=== PATIENT | female | born 1970 | race Caucasian/White ===

== ENCOUNTER 2016-11-13 21:30 | Emergency (ER) | payer MEDICARE, MEDICAID ==
[2016-11-13] MEDS ORDERED: METHYLPREDNISOLONE INJ 125 MG/2 ML SDV IM ONE (23:28)
--- NOTE | 2016-11-13 23:29 | ER Document Report ---
ED Allergic Reaction - General Chief Complaint: Allergic Reaction Stated Complaint: BUG BITE Time Seen by Provider: 11/13/16 23:06 Mode of Arrival: Ambulatory Information source: Patient TRAVEL OUTSIDE OF THE [place] IN LAST 30 DAYS: No - HPI Patient complains to provider of: Allergic reaction to bee sting Onset: This afternoon Onset/Duration: Gradual Severity: Mild Identified cause: Yes Skin rash / itching: "Hives" Trouble swallowing / speaking: Mild Notes: Patient is a 46-year-old female presenting to the emergency room complaining of insect sting to left upper extremity that has gotten worse with swelling and hives since the initial bee sting occurred, she reports a history of anaphylactic reaction in the past, has been taking Benadryl and has an EpiPen on hand which she has not used, today she developed redness and swelling near her left elbow, and the sensation of difficulty swallowing - Related Data Allergies/Adverse Reactions: No Known Allergies Allergy (Unverified 11/13/16 23:20) Past Medical History - General Information source: Patient - Social History Smoking Status: Current Every Day Smoker Frequency of alcohol use: None Drug Abuse: None Family History: Reviewed & Not Pertinent Patient has suicidal ideation: No Patient has homicidal ideation: No Renal/ Medical History: Denies: Hx Peritoneal Dialysis Past Surgical History: Reports: Hx Cholecystectomy, Hx Gynecologic Surgery - tubal ligation, Hx Orthopedic Surgery - spinal sx. Review of Systems - Review of Systems Constitutional: No symptoms reported EENT: Difficulty swallowing Cardiovascular: No symptoms reported Respiratory: No symptoms reported Gastrointestinal: No symptoms reported Genitourinary: No symptoms reported Female Genitourinary: No symptoms reported Musculoskeletal: No symptoms reported Skin: See HPI Hematologic/Lymphatic: No symptoms reported Neurological/Psychological: No symptoms reported -: Yes All other systems reviewed and negative Physical Exam - Vital signs Vitals: Temp Pulse Resp BP Pulse Ox 97.4 F 85 16 143/88 H 98 11/13/16 21:35 11/13/16 21:35 11/13/16 21:35 11/13/16 21:35 11/13/16 21:35 - Notes Notes: - General General appearance: Appears well, Alert In distress: None - HEENT Head: Normocephalic, Atraumatic Eyes: Normal Conjunctiva: Normal Extraocular movements intact: Yes Eyelashes: Normal Pupils: PERRL - Respiratory Respiratory status: No respiratory distress - Cardiovascular Rhythm: Regular - Abdominal Inspection: Normal - Back Back: Normal - Extremities General upper extremity: Normal inspection General lower extremity: Normal inspection - Neurological Neuro grossly intact: Yes Orientation: AAOx4 Agenda Coma Scale Eye Opening: Spontaneous Litzy Coma Scale Verbal: Oriented Agenda Coma Scale Motor: Obeys Commands Agenda Coma Scale Total: 15 - Psychological Associated symptoms: Normal affect, Normal mood - Skin Skin Temperature: Warm Skin Moisture: Dry Skin Color: Normal - HEENT Pharynx: Normal, Erythema. No: Exudate, Tonsillar hypertrophy, Uvular edema, Potential airway comprom. - Skin Location of irregularity: Extremities - Left upper extremity with erythematous patch in the medial portion of the elbow, on the lateral portion there are 2 areas of increased induration and erythema consistent with urticarial rash Course - Re-evaluation Re-evalutation: 11/13/16 23:31 Patient with localized allergic reaction to insect bite on the left upper extremity, she does report sensation of difficulty swallowing, however airway is patent with no edema, uvula swelling or tonsillar hypertrophy, patient has been taking Benadryl at home and also has an EpiPen on hand if needed, she requested that she be given a dose of steroids in the emergency department, she was provided with IM Solu-Medrol and a prescription for prednisone, advised to return if symptoms worsen, patient acknowledges understanding and agreement with this plan - Vital Signs Vital signs: Temp Pulse Resp BP Pulse Ox 97.4 F 85 16 143/88 H 98 11/13/16 21:35 11/13/16 21:35 11/13/16 21:35 11/13/16 21:35 11/13/16 21:35 Discharge - Discharge Clinical Impression: Allergic reaction Qualifiers: Encounter type: initial encounter Qualified Code(s): T78.40XA - Allergy, unspecified, initial encounter Condition: Stable Disposition: HOME, SELF-CARE Instructions: Acute Allergic Reaction ([facility]), Insect Sting ([facility]), Swollen Insect Bite or Sting ([facility]) Additional Instructions: Follow up with your primary care provider in one to 2 days. Return to the emergency room immediately if symptoms worsen or any additional concerns. Prescriptions: Prednisone 40 mg PO DAILY #8 tablet
[2016-11-13 23:48] VITALS: BP 130/86
== END 2016-11-13 23:40 | disposition home or self-care (01) ==
LOC: ER 21:30
DX: T78.40XA Allergy, unspecified, initial encounter (principal); T63.441A Toxic effect of venom of bees, accidental (unintentional), initial encounter; F17.200 Nicotine dependence, unspecified, uncomplicated; Z90.49 Acquired absence of other specified parts of digestive tract; Z98.51 Tubal ligation status
CPT/HCPCS: 99281; 96372; J2930

== ENCOUNTER 2016-11-25 13:49 | Emergency (ER) | payer MEDICARE, MEDICAID ==
[2016-11-25] MEDS ORDERED: DIPH/PERTUSS(ACELL)/TETANUS VAC/PF 0.5 ML SYR (>=10YO) IM ONE (14:38)
--- NOTE | 2016-11-25 14:43 | ER Document Report ---
ED Hand/Wrist Injury - General Chief Complaint: Finger Injury Stated Complaint: LEFT HAND PAIN/INJURY Time Seen by Provider: 11/25/16 14:15 Mode of Arrival: Ambulatory Information source: Patient Notes: 46-year-old female presents to ED for skin avulsion to the left index finger. She states she know she has low blood sugar and she was taken so she was trying to cut some and it would not cut so she grabbed him scissors to cut it with a cut her finger. No active bleeding at this time. TRAVEL OUTSIDE OF THE [place] IN LAST 30 DAYS: No - HPI Injury to: Index finger Onset: Just prior to arrival Where: Home, Indoors Quality of pain: Burning Severity: Moderate Pain Level: 3 Context: Other - skin avulsion - Related Data Allergies/Adverse Reactions: No Known Allergies Allergy (Verified 11/25/16 13:53) Past Medical History - General Information source: Patient - Social History Smoking Status: Current Every Day Smoker Cigarette use (# per day): Yes - 1/2 Chew tobacco use (# tins/day): No Smoking Education Provided: Yes - less than 1 min Frequency of alcohol use: Rare Drug Abuse: None Occupation: disabled Lives with: Spouse/Significant other Family History: Arthritis, CAD, DM, Hyperlipidemia, Hypertension, Malignancy. denies: COPD, CVA, Thyroid Disfunction Patient has suicidal ideation: No Patient has homicidal ideation: No - Past Medical History Cardiac Medical History: Reports: None Pulmonary Medical History: Reports: None EENT Medical History: Reports: None Neurological Medical History: Reports: None Endocrine Medical History: Reports: Other - hypoglycemia Renal/ Medical History: Reports: None Malignancy Medical History: Reports: None GI Medical History: Reports: None Musculoskeltal Medical History: Reports Hx Arthritis, Reports Hx Musculoskeletal Deformity, Reports Hx Musculoskeletal Trauma Skin Medical History: Reports None Psychiatric Medical History: Reports: Hx Anxiety Traumatic Medical History: Reports: Hx Fractures, Hx Spine Fracture Infectious Medical History: Reports: None Past Surgical History: Reports: Hx Cholecystectomy, Hx Gynecologic Surgery - tubal ligation, Hx Orthopedic Surgery - spinal sx. Review of Systems - Review of Systems Constitutional: No symptoms reported EENT: No symptoms reported Cardiovascular: No symptoms reported Respiratory: No symptoms reported Gastrointestinal: No symptoms reported Genitourinary: No symptoms reported Female Genitourinary: No symptoms reported Musculoskeletal: No symptoms reported Skin: Other - skin avulsion left index finger Hematologic/Lymphatic: No symptoms reported Neurological/Psychological: No symptoms reported -: Yes All other systems reviewed and negative Physical Exam - Vital signs Vitals: Temp Pulse BP Pulse Ox 98.4 F 113 H 137/87 H 100 11/25/16 13:52 11/25/16 13:52 11/25/16 13:52 11/25/16 13:52 Interpretation: Normal - General General appearance: Appears well, Alert - HEENT Head: Normocephalic, Atraumatic Eyes: Normal Pupils: PERRL - Respiratory Respiratory status: No respiratory distress Chest status: Nontender Breath sounds: Normal Chest palpation: Normal - Cardiovascular Rhythm: Regular Heart sounds: Normal auscultation Murmur: No - Abdominal Inspection: Normal Distension: No distension Bowel sounds: Normal Tenderness: Nontender Organomegaly: No organomegaly - Back Back: Normal, Nontender - Extremities General upper extremity: Normal color, Normal ROM, Normal temperature General lower extremity: Normal inspection, Nontender, Normal color, Normal ROM , Normal temperature, Normal weight bearing. No: Kelly's sign Hand: Tender, No evidence of human bite, No evidence of FB, Swelling, Other - skin avusion palmar surface left index finger - Neurological Neuro grossly intact: Yes Cognition: Normal Orientation: AAOx4 Litzy Coma Scale Eye Opening: Spontaneous Jenison Coma Scale Verbal: Oriented Jenison Coma Scale Motor: Obeys Commands Litzy Coma Scale Total: 15 Speech: Normal Motor strength normal: LUE, RUE, LLE, RLE Sensory: Normal - Psychological Associated symptoms: Normal affect, Normal mood - Skin Skin Temperature: Warm Skin Moisture: Dry Skin Color: Normal Course - Re-evaluation Re-evalutation: 11/25/16 17:45 Wound cleaned well with soap and water bacitracin applied to the avulsion injury Band-Aid applied. No active bleeding at this time. Patient has an appointment with her primary doctor to work her up for low blood sugar. Patient states she has eaten since this episode before she came to the emergency room. Patient was given a tetanus shot and discharged home to follow- up with her primary doctor for her 330 appointment. Patient is on chronic pain medicines of hydrocodone and MS Contin for her chronic pain - Vital Signs Vital signs: Temp Pulse Resp BP Pulse Ox 98.2 F 69 15 139/78 H 98 11/25/16 14:52 11/25/16 14:52 11/25/16 14:52 11/25/16 14:52 11/25/16 14:52 Discharge - Discharge Clinical Impression: Avulsion of skin of index finger Qualifiers: Encounter type: initial encounter Qualified Code(s): S61.208A - Unspecified open wound of other finger without damage to nail, initial encounter Condition: Stable Disposition: HOME, SELF-CARE Additional Instructions: Avulsion Injury You have an avulsion injury -- a loss of skin which can't be helped by suturing. When large, these injuries can require skin grafting. Smaller defects or shallow avulsions usually heal well with dressings. Keep the dressing clean and dry. If the bandage becomes wet, remove it, blot the area dry, and apply a fresh dressing. Change the dressings every day. Complete healing may take anywhere from 10 days to two months. The healing time depends on the size and depth of the avulsion and on the amount of crushing of underlying tissues. Re-examination by the physician is often necessary. If any signs of infection occur (swelling, redness, increasing tenderness, red streaks, profuse purulent drainage from the avulsion, tender lumps in the armpit or groin above the avulsion, or fever), see your doctor immediately. SOAP CLEANSING: Gently wash the wound daily using a mild soap (like Ivory, Phisoderm, Neutrogena). Use warm water, rubbing gently until all debris, ooze, and crusting have been washed from the wound. Allow to dry briefly (about 10 minutes) after cleaning. Repeat this cleansing at least three times a day for the first two days and then once or twice a day. ANTIBIOTIC OINTMENT PROTECTION: Your wounds are such that dressing them is not practical or optional. After cleansing, you should apply a thin coating of antibiotic ointment ( Bacitracin, not Neosporin) to the wounds at least three times daily. This lessens infection risk, and may decrease the amount of scarring. Use a q-tip or dull butter knife, not your finger, to apply this ointment. Any debris or ooze which builds up in the ointment should be gently rubbed off with a sterile gauze pad. Harder crusting may need to be gently scrubbed off with a clean wash cloth with soap and warm water, perhaps applying a warm, wet wash cloth to the wound for ten minutes first. Development of redness, severe itching, or blistering may mean allergy to the ointment. See the doctor. TETANUS IMMUNIZATION GIVEN: You have been given an immunization against tetanus. Please record this in your records. In general, a booster is needed only once every 10 years. The tetanus shot protects against tetanus or "lockjaw," which is a complication of certain wound infections (the tetanus shot cannot protect against the actual infection). The immunization site may become warm and red due to local reaction. If this occurs, apply warm compresses and take aspirin or ibuprofen to reduce inflammation and discomfort. Return for evaluation if the reaction becomes severe. FOLLOW-UP CARE: If you have been referred to a physician for follow-up care, call the physician s office for an appointment as you were instructed or within the next two days. If you experience worsening or a significant change in your symptoms, notify the physician immediately or return to the Emergency Department at any time for re-evaluation. Keep your appointment with your doctor at 330 today. Forms: Elevated Blood Pressure, Smoking Cessation Education Referrals: ADARSH CUNNINGHAM PA-C [NO LOCAL MD] - 11/25/16
[2016-11-25 14:53] VITALS: BP 139/78
== END 2016-11-25 14:53 | disposition home or self-care (01) ==
LOC: ER 13:49
DX: S61.201A Unspecified open wound of left index finger without damage to nail, initial encounter (principal); W45.8XXA Other foreign body or object entering through skin, initial encounter; Y93.89 Activity, other specified; Y92.009 Unspecified place in unspecified non-institutional (private) residence as the place of occurrence of the external cause; F17.210 Nicotine dependence, cigarettes, uncomplicated; Z71.6 Tobacco abuse counseling; Z23 Encounter for immunization
CPT/HCPCS: 90471; 90715; 99283

== ENCOUNTER 2017-06-02 10:46 | Emergency (ER) | payer MEDICARE, MEDICAID ==
--- NOTE | 2017-06-02 12:03 | ER Document Report ---
HPI - HPI Patient complains to provider of: Exacerbation of her chronic back pain Onset: Other Onset/Duration: Gradual - Thursday Pain Level: 5 Context: 47-year-old female complaining of exacerbation of her normal back pain when her foot slipped and she twisted her back trying to start the lawnmower on Thursday. The pain is in her lower part of her back over her sacrum and radiates into both of her legs. She has a history of right foot drop and no reflux in the right ankle. She takes morphine 15 mg every 12 hours and hydrocodon 7.5 mg for breakthrough pain. She called her integrated pain management today in the told her they could not see her so she came to the emergency room. She wants to make sure that her lumbar fusion has not been injured with this incident and she states that Toradol is helped in the past. Associated Symptoms: None Similar symptoms previously: Yes Recently seen / treated by doctor: No - ROS ROS below otherwise negative: Yes Systems Reviewed and Negative: Yes All other systems reviewed and negative - NEURO Neurology: REPORTS: Weakness - BLE R>L Past Medical History - General Information source: Patient - Social History Smoking Status: Current Every Day Smoker Frequency of alcohol use: None Drug Abuse: None Lives with: Family Family History: Arthritis, CAD, DM, Hyperlipidemia, Hypertension, Malignancy Patient has suicidal ideation: No Patient has homicidal ideation: No Renal/ Medical History: Denies: Hx Peritoneal Dialysis Musculoskeltal Medical History: Reports Hx Arthritis, Reports Hx Musculoskeletal Deformity, Reports Hx Musculoskeletal Trauma Psychiatric Medical History: Reports: Hx Anxiety Traumatic Medical History: Reports: Hx Fractures, Hx Spine Fracture Past Surgical History: Reports: Hx Cholecystectomy, Hx Gynecologic Surgery - tubal ligation, Hx Orthopedic Surgery - spinal sx. Vertical Provider Document - CONSTITUTIONAL Agree With Documented VS: Yes Exam Limitations: No Limitations - INFECTION CONTROL TRAVEL OUTSIDE OF THE [place] IN LAST 30 DAYS: No - HEENT HEENT: Normocephalic - NECK Neck: Supple - RESPIRATORY Respiratory: Breath Sounds Normal, No Respiratory Distress - CARDIOVASCULAR Cardiovascular: Regular Rate, Regular Rhythm - GI/ABDOMEN Gastrointestinal: Abdomen Soft, Abdomen Non-Tender - BACK Back: Normal Inspection - MUSCULOSKELETAL/EXTREMETIES Musculoskeletal/Extremeties: MAEW, Tender - over scarum and SI joints - NEURO Level of Consciousness: Awake Notes: 2+ ras patellar, 2 + left ankle, 0 (known) right ankle-hx foot drop and numbness - DERM Integumentary: Warm, Dry Course - Re-evaluation Re-evalutation: 06/02/17 13:57 Degenerative changes in lumbar spine, sacrum x-ray is negative. - Vital Signs Vital signs: Temp Pulse Resp BP Pulse Ox 97.9 F 78 16 119/78 98 06/02/17 10:58 06/02/17 10:58 06/02/17 10:58 06/02/17 10:58 06/02/17 10:58 Discharge - Discharge Clinical Impression: Low back muscle strain Condition: Good Disposition: HOME, SELF-CARE Instructions: Low Back Pain ([facility]), Muscle Strain ([facility]), Warm Packs ([facility]), Toradol Injection ([facility]), Steroid Medication Additional Instructions: See her pain management doctor Copy of x-rays given to you Steroid Dosepak Prescriptions: Prednisone [Deltasone 10 mg Tablet] 10 mg PO ASDIR PRN #21 tablet PRN Reason: Referrals: ADARSH CUNNINGHAM PA-C [Primary Care Provider] - Follow up tomorrow
[2017-06-02] MEDS ORDERED: KETOROLAC TROMETHAMINE 60 MG/2 ML SDV IM ONE (12:54)
--- NOTE | 2017-06-02 13:46 | RADIOLOGY REPORT (SQ) ---
EXAM DESCRIPTION: SACRUM AND COCCYX COMPLETED DATE/TIME: 06/02/2017 1:34 pm REASON FOR STUDY: injury, pain COMPARISON: None. NUMBER OF VIEWS: Three views. TECHNIQUE: AP, lateral, and tilt views of the sacrum and coccyx. LIMITATIONS: None. FINDINGS: MINERALIZATION: Normal. BONES: No acute fracture or dislocation. No worrisome bone lesions. SOFT TISSUES: No soft tissue swelling. No foreign body. OTHER: Surgical changes lower lumbar spine. IMPRESSION: NEGATIVE STUDY OF THE SACRUM AND COCCYX. TECHNICAL DOCUMENTATION: JOB ID: [id number] [employer]- All Rights Reserved Reading location - IP/workstation name: [email or web address]
--- NOTE | 2017-06-02 13:52 | RADIOLOGY REPORT (SQ) ---
EXAM DESCRIPTION: L SPINE WHOLE COMPLETED DATE/TIME: 06/02/2017 1:34 pm REASON FOR STUDY: injury, pain COMPARISON: None. NUMBER OF VIEWS: Five views including obliques. TECHNIQUE: AP, lateral, oblique, and sacral radiographic images acquired of the lumbar spine. LIMITATIONS: None. FINDINGS: MINERALIZATION: Normal. SEGMENTATION: Normal. No transitional anatomy. ALIGNMENT: Minimal degenerative retrolisthesis L3 on L4. VERTEBRAE: Maintained height. No fracture or worrisome bone lesion. DISCS: Disc space narrowing L3-4. POSTERIOR ELEMENTS: Laminectomy L4 on the right. HARDWARE: Pedicle screws and bridging plates L4-5. Disc prosthesis. PARASPINAL SOFT TISSUES: Normal. PELVIS: Intact as visualized. No fractures or worrisome bone lesions. SI joints intact. OTHER: No other significant finding. IMPRESSION: Postsurgical and degenerative changes. No acute findings. TECHNICAL DOCUMENTATION: JOB ID: [id number] [employer]- All Rights Reserved Reading location - IP/workstation name: [email or web address]
[2017-06-02 14:40] VITALS: BP 120/71
== END 2017-06-02 14:40 | disposition home or self-care (01) ==
LOC: ER 10:46
DX: S39.012A Strain of muscle, fascia and tendon of lower back, initial encounter (principal); X50.0XXA Overexertion from strenuous movement or load, initial encounter; Y93.H2 Activity, gardening and landscaping; F17.200 Nicotine dependence, unspecified, uncomplicated; Z98.1 Arthrodesis status; Z90.49 Acquired absence of other specified parts of digestive tract; Z98.51 Tubal ligation status
CPT/HCPCS: 99283; 96372; 72220; 72110; J1885

== ENCOUNTER 2017-09-25 14:21 | Emergency (ER) | payer MEDICARE, MEDICAID ==
[2017-09-25] MEDS ORDERED: METHYLPREDNISOLONE INJ 125 MG/2 ML SDV IM ONE (14:59)
--- NOTE | 2017-09-25 15:21 | ER Document Report ---
ED Allergic Reaction - General Chief Complaint: Allergic Reaction Stated Complaint: POSSIBLE ALLERGIC REACTION Time Seen by Provider: 09/25/17 14:59 Mode of Arrival: Ambulatory Information source: Patient Notes: Chief complaint: Allergic reaction History of complain:( obtained from----patient) 47 years old female who is taking seen him for Bee allergies, during the treatment he yesterday started to have slight rash this morning had difficulty in breathing stridor itching in the throat as well as right facial rash and therefore present to the ED. No fever chills or other constitutional symptoms Onset: As above gradual Duration: 2-3 days Severity: Mild to moderate Quality: As above Context: As above Exacerbating factor and relieving factors: None REVIEW OF SYSTEMS: CONSTITUTIONAL : Denies fever, chills, or sweats. Denies recent illness. EENT: Denies eye, ear, throat, or mouth pain or symptoms. Denies nasal or sinus congestion or discharge. Denies throat, tongue, or mouth swelling or difficulty swallowing. CARDIOVASCULAR: Denies chest pain. Denies palpitations or racing or irregular heart beat. Denies ankle edema. RESPIRATORY: Denies cough, cold, or chest congestion. Denies shortness of breath, difficulty breathing, or wheezing. GASTROINTESTINAL: Denies distention. Denies nausea, vomiting, or diarrhea. Denies blood in vomitus, stools, or per rectum. Denies black, tarry stools. Denies constipation. GENITOURINARY: Denies difficulty urinating, painful urination, burning, frequency, blood in urine, or discharge. FEMALE GENITOURINARY: Denies vaginal bleeding, heavy or abnormal periods, irregular periods. Denies vaginal discharge or odor. MUSCULOSKELETAL: Denies back or neck pain or stiffness. Denies joint pain or swelling. SKIN: Denies rash, lesions or sores. HEMATOLOGIC : Denies easy bruising or bleeding. LYMPHATIC: Denies swollen, enlarged glands. NEUROLOGICAL: Denies confusion or altered mental status. Denies passing out or loss of consciousness. Denies dizziness or lightheadedness. Denies headache. Denies weakness or paralysis or loss of use of either side. Denies problems with gait or speech. Denies sensory loss, numbness, or tingling. Denies seizures. PSYCHIATRIC: Denies anxiety or stress. Denies depression, suicidal ideation, or homicidal ideation. ALL OTHER SYSTEMS REVIEWED AND NEGATIVE. PHYSICAL EXAMINATION: GENERAL: Well-appearing, well-nourished and in no acute distress. HEAD: Atraumatic, normocephalic. EYES: Pupils equal round and reactive to light, extraocular movements intact, conjunctiva are normal. ENT: Nares patent, oropharynx clear without exudates. Moist mucous membranes. NECK: Normal range of motion, supple without lymphadenopathy. No stridor. LUNGS: Breath sounds clear to auscultation bilaterally and equal. No wheezes rales or rhonchi. HEART: Regular rate and rhythm without murmurs ABDOMEN: Soft, nontender, nondistended abdomen. No guarding, no rebound. No masses appreciated. Examination of genitals-deferred Musculoskeletal: Normal range of motion, no pitting or edema. No cyanosis. NEUROLOGICAL: Cranial nerves grossly intact. Normal speech, normal gait. Normal sensory, motor exams PSYCH: Normal mood, normal affect. SKIN: Warm, Dry, normal turgor, no rashes or lesions noted. Except facial erythema noted. Dictation was performed using [email or web address] voice recognition software TRAVEL OUTSIDE OF THE [place] IN LAST 30 DAYS: No - HPI Notes: Dictated - Related Data Allergies/Adverse Reactions: banana Allergy (Verified 09/25/17 14:23) codeine Allergy (Verified 09/25/17 14:23) latex Allergy (Verified 09/25/17 14:23) bees Allergy (Uncoded 09/25/17 14:23) dairy Allergy (Uncoded 09/25/17 14:23) Past Medical History - Social History Smoking Status: Current Every Day Smoker Cigarette use (# per day): No Chew tobacco use (# tins/day): No Frequency of alcohol use: Rare Drug Abuse: None Lives with: Family Family History: Reviewed & Not Pertinent, Arthritis, CAD, DM, Hyperlipidemia, Hypertension, Malignancy Patient has suicidal ideation: No Patient has homicidal ideation: No Renal/ Medical History: Denies: Hx Peritoneal Dialysis Musculoskeletal Medical History: Reports Hx Arthritis, Reports Hx Musculoskeletal Deformity, Reports Hx Musculoskeletal Trauma Psychiatric Medical History: Reports: Hx Anxiety Traumatic Medical History: Reports: Hx Fractures, Hx Spine Fracture Past Surgical History: Reports: Hx Cholecystectomy, Hx Gynecologic Surgery - tubal ligation, Hx Orthopedic Surgery - spinal sx. Review of Systems - Review of Systems Notes: Dictated Physical Exam - Vital signs Vitals: Temp Pulse Resp BP Pulse Ox 98.2 F 67 16 123/70 98 09/25/17 14:38 09/25/17 14:38 09/25/17 14:38 09/25/17 14:38 09/25/17 14:38 - Notes Notes: Dictated Course - Re-evaluation Re-evalutation: 09/25/17 15:07 Given Solu-Medrol - Vital Signs Vital signs: Temp Pulse Resp BP Pulse Ox 98.2 F 67 16 123/70 98 09/25/17 14:38 09/25/17 14:38 09/25/17 14:38 09/25/17 14:38 09/25/17 14:38 Discharge - Discharge Clinical Impression: Allergic reaction caused by a drug Qualifiers: Encounter type: initial encounter Qualified Code(s): T78.40XA - Allergy, unspecified, initial encounter Condition: Fair Disposition: HOME, SELF-CARE Instructions: Acute Allergic Reaction ([facility]) Prescriptions: Prednisone 5 mg PO ASDIR 6 Days #1 tab.ds.pk Referrals: ADARSH CNUNINGHAM PA-C [Primary Care Provider] - Follow up as needed
[2017-09-25 16:28] VITALS: BP 102/64
== END 2017-09-25 16:19 | disposition home or self-care (01) ==
LOC: ER 14:21
DX: T78.40XA Allergy, unspecified, initial encounter (principal); R06.1 Stridor; R21 Rash and other nonspecific skin eruption; R09.89 Other specified symptoms and signs involving the circulatory and respiratory systems; X58.XXXA Exposure to other specified factors, initial encounter; F17.200 Nicotine dependence, unspecified, uncomplicated; Z91.018 Allergy to other foods; Z88.5 Allergy status to narcotic agent; Z91.040 Latex allergy status; Z91.030 Bee allergy status
CPT/HCPCS: 99283; 96372; J2930

== ENCOUNTER 2018-05-13 11:02 | Inpatient (IN) | payer MEDICARE, MEDICAID ==
--- NOTE | 2018-05-13 11:37 | ER Document Report ---
ED Medical Screen (RME) - General Chief Complaint: Flank Pain Stated Complaint: FLANK PAIN Time Seen by Provider: 05/13/18 11:33 Primary Care Provider: ADARSH CUNNINGHAM PA-C [Primary Care Provider] - Follow up as needed Mode of Arrival: Wheelchair Information source: Patient Notes: Patient is a 48-year-old female who presents to the emergency department with chief complaint of left-sided low back pain with dysuria. Patient reports she has had the symptoms for approximately 3-4 days. Patient is febrile tachycardic at time of arrival. Denies any nausea, vomiting or diarrhea. Exam: No CVA tenderness. Tenderness to palpation to left lumbar paraspinous area. I have greeted and performed a rapid initial assessment of this patient. A comprehensive ED assessment and evaluation of the patient, analysis of test results and completion of the medical decision making process will be conducted by additional ED providers. Dictation of this chart was performed using voice recognition software; therefore, there may be some unintended grammatical errors. TRAVEL OUTSIDE OF THE [place] IN LAST 30 DAYS: No - Related Data Allergies/Adverse Reactions: banana Allergy (Verified 05/13/18 11:04) codeine Allergy (Verified 05/13/18 11:04) latex Allergy (Verified 05/13/18 11:04) bees Allergy (Uncoded 05/13/18 11:04) dairy Allergy (Uncoded 05/13/18 11:04) Past Medical History Renal/ Medical History: Denies: Hx Peritoneal Dialysis Musculoskeltal Medical History: Reports Hx Arthritis, Reports Hx Musculoskeletal Deformity, Reports Hx Musculoskeletal Trauma Psychiatric Medical History: Reports: Hx Anxiety Traumatic Medical History: Reports: Hx Fractures, Hx Spine Fracture Past Surgical History: Reports: Hx Cholecystectomy, Hx Gynecologic Surgery - t ubal ligation, Hx Orthopedic Surgery - spinal sx. Physical Exam - Vital signs Vitals: Temp Pulse Resp BP Pulse Ox 102.9 F H 132 H 20 100/57 L 94 05/13/18 11:16 05/13/18 11:16 05/13/18 11:16 05/13/18 11:16 05/13/18 11:16 Course - Vital Signs Vital signs: Temp Pulse Resp BP Pulse Ox 102.9 F H 132 H 20 100/57 L 94 05/13/18 11:16 05/13/18 11:16 05/13/18 11:16 05/13/18 11:16 05/13/18 11:16 Doctor's Discharge - Discharge Referrals: ADARSH CUNNINGHAM PA-C [Primary Care Provider] - Follow up as needed
[2018-05-13] MEDS ORDERED: KETOROLAC TROMETHAMINE INJ/PF 30 MG/1 ML SDV IV ONE (11:38)
[2018-05-13] MEDS ORDERED: ACETAMINOPHEN 325 MG TABLET PO ONE (11:38)
[2018-05-13] MEDS ORDERED: NORMAL SALINE 1000 ML 1,000 ML IV ONE ×4 (11:38→21:30)
[2018-05-13 12:14] LABS: APPEARANCE,URINE SLIGHTLY-CLOUDY; BILIRUBIN,URINE NEGATIVE (NEGATIVE); COLOR,URINE YELLOW; GLUCOSE, URINE NEGATIVE (NEGATIVE); KETONES,URINE NEGATIVE (NEGATIVE); LEUKOCYTE ESTERASE,URINE TRACE (NEGATIVE); NITRITE,URINE POSITIVE (NEGATIVE); PROTEIN,URINE 30 mg/dL (NEGATIVE); URINE SPECIFIC GRAVITY 1.012; UROBILINOGEN,URINE NEGATIVE mg/dL (<2.0)
[2018-05-13 12:42] LABS: HEMATOCRIT 45.1 % (36.0-47.0); HEMOGLOBIN 15.7 g/dL (12.0-15.5); MEAN CORPUSCULAR HEMOGLOBIN 31.8 pg (27.0-33.4); MEAN CORPUSCULAR HGB CONC 34.9 g/dL (32.0-36.0); MEAN CORPUSCULAR VOLUME 91 fl (80-97); PLATELET COUNT 170 10^3/uL (150-450); RED BLOOD COUNT 4.94 10^6/uL (3.72-5.28); RED CELL DISTRIBUTION WIDTH 13.4 % (11.5-14.0); WHITE BLOOD COUNT 7.7 10^3/uL (4.0-10.5)
[2018-05-13 13:03] LABS: ALANINE AMINOTRANSFERASE 162 U/L (9-52); ALBUMIN 3.8 g/dL (3.5-5.0); ALKALINE PHOSPHATASE 183 U/L (38-126); ANION GAP 13 (5-19); ASPARTATE AMINO TRANSFERASE 214 U/L (14-36); BILIRUBIN,DIRECT 0.8 mg/dL (0.0-0.4); BILIRUBIN,TOTAL 1.3 mg/dL (0.2-1.3); BLOOD UREA NITROGEN 14 mg/dL (7-20); CALCIUM 9.4 mg/dL (8.4-10.2); CARBON DIOXIDE 21 mmol/L (22-30); CHLORIDE 102 mmol/L (98-107); GLUCOSE 100 mg/dL (75-110); LIPASE 51.7 U/L (23-300); POTASSIUM 4.1 mmol/L (3.6-5.0); SODIUM 135.8 mmol/L (137-145); TOTAL PROTEIN 6.9 g/dL (6.3-8.2)
[2018-05-13 13:07] LABS: ABSOLUTE LYMPHOCYTES# (MANUAL) 0.5 10^3/uL (0.5-4.7); BASOPHILS % (MANUAL) 1 % (0-2); EOSINOPHILS % (MANUAL) 1 % (0-6); LYMPHOCYTES % (MANUAL) 6 % (13-45); MONOCYTES % (MANUAL) 0 % (3-13); SEGMENTED NEUTROPHILS % (MAN) 70 % (42-78); TOTAL CELLS COUNTED 100
[2018-05-13 13:14] LABS: OVALOCYTES SLIGHT; PLATELET COMMENT ADEQUATE; POIKILOCYTOSIS SLIGHT; POLYCHROMASIA SLIGHT
[2018-05-13 13:15] LABS: BAND NEUTROPHILS % (MANUAL) 21 % (3-5)
[2018-05-13] MEDS ORDERED: CEFTRIAXONE INJ 1000 MG VIAL IV ONE (14:50)
[2018-05-13 14:51] LABS: VENOUS BLOOD BASE EXCESS -1.4 mmol/L; VENOUS BLOOD HCO3 22.1 mmol/L (20-32); VENOUS BLOOD PCO2 33.7 mmHg (35-63); VENOUS BLOOD PH 7.43 (7.30-7.42)
--- NOTE | 2018-05-13 14:53 | RADIOLOGY REPORT (SQ) ---
EXAM DESCRIPTION: CT ABD/PELVIS NO ORAL OR IV COMPLETED DATE/TIME: 05/13/2018 2:41 pm REASON FOR STUDY: abd and flank pain left COMPARISON: None. TECHNIQUE: CT scan of the abdomen and pelvis performed without intravenous or oral contrast. Images reviewed with lung, soft tissue, and bone windows. Reconstructed coronal and sagittal MPR images revi ewed. All images stored on PACS. All CT scanners at this facility use dose modulation, iterative reconstruction, and/or weight based d osing when appropriate to reduce radiation dose to as low as reasonably achievable (ALARA). [facility]: Dose Right [facility]: CareDose [facility]: Dose Right [facility]: Teradose 4D [facility]: Close RADIATION DOSE: CT Rad equipment meets quality standard of care and radiation dose reduction techniq ues were employed. CTDIvol: 5.7 mGy. DLP: 290 mGy-cm.mGy. LIMITATIONS: Artifact from lumbar fusion. FINDINGS: LOWER CHEST: No significant findings. No nodules or infiltrates. NON-CONTRASTED LIVER, SPLEEN, ADRENALS: Evaluation limited by lack of IV contrast. No identified sign ificant masses. PANCREAS: No masses. No peripancreatic inflammatory changes. GALLBLADDER: Surgically absent. RIGHT KIDNEY AND URETER: Small cyst. No suspicious masses. Assessment limited by lack of IV contrast . No significant calcifications. No hydronephrosis or hydroureter. LEFT KIDNEY AND URETER: Small cyst. No suspicious masses. Assessment limited by lack of IV contrast. Several renal calculi measuring up to about 3 mm No hydronephrosis or hydroureter. AORTA AND RETROPERITONEUM: No aneurysm. No retroperitoneal masses or adenopathy. BOWEL AND PERITONEAL CAVITY: Sigmoid diverticulosis. No obvious masses or inflammatory changes. No f ree fluid. APPENDIX: Not visualized. PELVIS, BLADDER, AND ABDOMINAL WALL:No abnormal masses. No free fluid. Bladder normal. BONES: Nothing acute. OTHER: No other significant finding. IMPRESSION: Nonobstructing left renal calculi. COMMENT: Quality ID # [id number]: Final reports with documentation of one or more dose reduction techniques (e.g., Automated exposure control, adjustment of the mA and/or kV according to patient size, use of iterative reconstruction technique) TECHNICAL DOCUMENTATION: JOB ID: [id number] [employer]- All Rights Reserved Reading location - IP/workstation name: [email or web address]
--- NOTE | 2018-05-13 14:54 | RADIOLOGY REPORT (SQ) ---
EXAM DESCRIPTION: CHEST 2 VIEWS COMPLETED DATE/TIME: 05/13/2018 2:47 pm REASON FOR STUDY: cough COMPARISON: None. EXAM PARAMETERS: NUMBER OF VIEWS: two views TECHNIQUE: Digital Frontal and Lateral radiographic views of the chest acquired. RADIATION DOSE: NA LIMITATIONS: none FINDINGS: LUNGS AND PLEURA: No opacities, masses or pneumothorax. No pleural effusion. MEDIASTINUM AND HILAR STRUCTURES: No masses or contour abnormalities. HEART AND VASCULAR STRUCTURES: Heart normal size. No evidence for failure. BONES: No acute findings. HARDWARE: None in the chest. OTHER: No other significant finding. IMPRESSION: NO ACUTE RADIOGRAPHIC FINDING IN THE CHEST. TECHNICAL DOCUMENTATION: JOB ID: [id number] [employer]- All Rights Reserved Reading location - IP/workstation name: [email or web address]
[2018-05-13 14:57] LABS: PROTHROMBIN TIME 13.7 SEC (11.4-15.4)
--- NOTE | 2018-05-13 16:02 | ER Document Report ---
ED General - General Mode of Arrival: Wheelchair Information source: Patient TRAVEL OUTSIDE OF THE [place] IN LAST 30 DAYS: No - HPI Onset: Last week Onset/Duration: Sudden, Gradual Quality of pain: Sharp - No, Stabbing, Throbbing Severity: Severe Pain Level: 4 Associated symptoms: Allergy/hay fever, Body/muscle aches, Productive cough, Diarrhea, Hurts to breath, Rhinnorhea, Sinus pain/drainage, Weakness, Other Exacerbated by: Supine, Sitting, Standing, Movement, Walking, Coughing, Deep breathing Relieved by: Denies Similar symptoms previously: No Recently seen / treated by doctor: No <CAMRYN MCGILL - Last Filed: 05/13/18 17:12> <ADILSON MCINTOSH - Last Filed: 05/13/18 17:45> - General Chief Complaint: Flank Pain Stated Complaint: FLANK PAIN Time Seen by Provider: 05/13/18 11:33 Primary Care Provider: ADARSH CUNNINGHAM PA-C [Primary Care Provider] - Follow up as needed Notes: Patient is a 48-year-old female comes into the emergency room complaint of fever left flank pain and abdominal pain. Patient states that she started having some weird symptoms on Thursday this past week where she had a little bit of blurred vision in her eye. She contacted her primary care doctor Dr. Cunningham and went saw him. She states he was concerned it was a migraine so he was treated for migraine. Last night she got up to go urinate and she had sudden onset of left abdominal pain was severe. She states she could not walk because she felt dizzy she called the MD again this morning and he told her to come to the emergency room. Patient has a history of kidney stones but states it does not feel like a kidney stone. She also has a history of chronic back pain she had a history of a fusion surgery of her lumbar spine area and is on chronic pain medications. Last took at 330 this morning. Patient denies any chest pain shortness of zenon ath but does states she feels a little bit is dizzy and has a slight headache. (CAMRYN MCGILL) - Related Data Allergies/Adverse Reactions: banana Allergy (Verified 05/13/18 11:04) codeine Allergy (Verified 05/13/18 11:04) latex Allergy (Verified 05/13/18 11:04) bees Allergy (Uncoded 05/13/18 11:04) dairy Allergy (Uncoded 05/13/18 11:04) Past Medical History - General Information source: Patient Last Menstrual Period: 1 week ago - Social History Smoking Status: Current Every Day Smoker Cigarette use (# per day): Yes - 1 pack/day Chew tobacco use (# tins/day): No Smoking Education Provided: No Frequency of alcohol use: Occasional Drug Abuse: None Occupation: Unemployed Family History: Reviewed & Not Pertinent, Arthritis, CAD, DM, Hyperlipidemia, Hypertension, Malignancy Renal/ Medical History: Denies: Hx Peritoneal Dialysis Musculoskeletal Medical History: Reports Hx Arthritis, Reports Hx Musculoskeletal Deformity, Reports Hx Musculoskeletal Trauma Psychiatric Medical History: Reports: Hx Anxiety Traumatic Medical History: Reports: Hx Fractures, Hx Spine Fracture Past Surgical History: Reports: Hx Cholecystectomy, Hx Gynecologic Surgery - tubal ligation, Hx Orthopedic Surgery - spinal sx. <CAMRYN MCGILL - Last Filed: 05/13/18 17:12> Review of Systems - Review of Systems Constitutional: No symptoms reported, Weakness EENT: No symptoms reported Cardiovascular: No symptoms reported Respiratory: No symptoms reported Gastrointestinal: No symptoms reported Genitourinary: No symptoms reported Female Genitourinary: See HPI, Last menstrual period, Post menopausal Musculoskeletal: No symptoms reported Skin: No symptoms reported Hematologic/Lymphatic: No symptoms reported Neurological/Psychological: No symptoms reported, Headaches -: Yes All other systems reviewed and negative <CAMRYN MCGILL - Last Filed: 05/13/18 17:12> Physical Exam - Vital signs Interpretation: Hypotensive - General General appearance: Alert In distress: Mild - HEENT Head: Normocephalic, Atraumatic Eyes: Normal, Pale conjunctiva Conjunctiva: Normal Cornea: Normal Extraocular movements intact: Yes Eyelashes: Normal Pupils: PERRL <CAMRYN MCGILL - Last Filed: 05/13/18 17:12> - Vital signs Vitals: Temp Pulse Resp BP Pulse Ox 102.9 F H 132 H 20 100/57 L 94 05/13/18 11:16 05/13/18 11:16 05/13/18 11:16 05/13/18 11:16 05/13/18 11:16 - Notes Notes: PHYSICAL EXAMINATION: GENERAL: Well-nourished and well-developed 48-year-old female in mild distress HEAD: Atraumatic, normocephalic. EYES: Pupils equal round and reactive to light, extraocular movements intact, conjunctiva are normal. ENT: Nares patent, oropharynx clear without exudates. Dry mucous membranes NECK: Normal range of motion, supple without lymphadenopathy LUNGS: auscultation patient's lung becker show she has bilateral breath sounds breath sounds are decreased throughout with no rhonchi rales or wheeze heard. She has clear breath sounds bilaterally HEART: Patient was tachycardic on initial physical examination at 135 after fluids she is down to 92. ABDOMEN: Examination of the abdomen shows patient has some back diffuse tenderness across the anterior portion of the abdomen bowel sounds are all 4 quadrants. She has increased tenderness to palpation and percussion in the left upper and left lower quadrants. Female : deferred Musculoskeletal: Normal range of motion, no pitting or edema. No cyanosis. NEUROLOGICAL: Cranial nerves grossly intact. Normal speech, normal gait. Normal sensory, motor exams patient's NIH score is 0 PSYCH: Depressed mood SKIN: Warm, Dr, no rashes or lesions noted. (CAMRYN MCGILL) Course - Laboratory Result Diagrams: 05/13/18 12:10 05/13/18 12:10 - Diagnostic Test Radiology reviewed: Reports reviewed - EKG Interpretation by Dc EKG shows normal: Sinus rhythm Rate: Tachycardia Rhythm: NSR <CAMRYN MCGILL - Last Filed: 05/13/18 17:12> - Laboratory Result Diagrams: 05/13/18 12:10 05/13/18 12:10 - Diagnostic Test Radiology reviewed: Image reviewed, Reports reviewed <ADILSON MCINTOSH - Last Filed: 05/13/18 17:45> - Re-evaluation Re-evalutation: 05/13/18 16:49 Patient has been Melisa tottering on her blood pressure down to as low as 70/40 to 90/50. We have given 3 boluses of fluid and still she is not maintaining a 40 we have elected to go ahead and put in a second line around Levophed to keep pressures up. Patient is willing to come to the hospital so we will contact the hospitalist to find out they want to take her into the floor or MICU. I had Dr. Lopez will also evaluate patient prior to starting the Levophed. She was concerned enough she went and examined the patient in person. She agrees with my management of treatment plan to use Levophed if pressures remain below 85 systolic we will go ahead and run because we did bilateral manual since she was 80/40 bilaterally on blood pressures. 05/13/18 17:17 (CAMRYN MCGILL) 05/13/18 17:42 48-year-old female presents with complaint of left flank pain. Patient found to be febrile, hypotensive. Patient has a significant bandemia of 21, and a urinary tract infection. Upon my exam patient is alert, awake and asking for discharge home. Patient was urgently advised that she should be admitted to the hospital. Despite fluid resuscitation patient remained hypotensive. Levophed was initiated. Patient received ceftriaxone, 3 L of IV fluids. Patient now agreeable with admission. PHYSICAL EXAMINATION: GENERAL: Well-appearing, well-nourished and in no acute distress. HEAD: Atraumatic, normocephalic. EYES: Pupils equal round extraocular movements intact, conjunctiva are normal. LUNGS: No respiratory distress Musculoskeletal: Normal range of motion NEUROLOGICAL: Normal speech, PSYCH: Normal mood, normal affect. SKIN: Warm, Dry, normal turgor, no rashes or lesions noted. (ADILSON MCINTOSH) - Vital Signs Vital signs: Temp Pulse Resp BP Pulse Ox 98.5 F 112 H 20 100/57 L 96 05/13/18 14:19 05/13/18 11:39 05/13/18 11:16 05/13/18 11:16 05/13/18 11:39 - Laboratory Laboratory results interpreted by me: 05/13/18 05/13/18 05/13/18 11:47 12:10 12:10 Hgb 15.7 H Band Neutrophils % 21 H Lymphocytes % (Manual) 6 L Monocytes % (Manual) 0 L Abs Monocytes (Manual) 0.0 L VBG pH VBG pCO2 Sodium 135.8 L Carbon Dioxide 21 L Direct Bilirubin 0.8 H AST 214 H ALT 162 H Alkaline Phosphatase 183 H Urine Protein 30 H Urine Blood LARGE H Urine Nitrite POSITIVE H Ur Leukocyte Esterase TRACE H 05/13/18 14:19 Hgb Band Neutrophils % Lymphocytes % (Manual) Monocytes % (Manual) Abs Monocytes (Manual) VBG pH 7.43 H VBG pCO2 33.7 L Sodium Carbon Dioxide Direct Bilirubin AST ALT Alkaline Phosphatase Urine Protein Urine Blood Urine Nitrite Ur Leukocyte Esterase Critical Care Note - Critical Care Note Total time excluding time spent on procedures (mins): 40 - Minutes of critical care time spent in direct contact evaluating and reevaluating the patient, treating symptoms, reviewing labs and studies and speaking with family and consultants excluding any procedures <ADILSON MCINTOSH E - Last Filed: 05/13/18 17:45> Discharge - Discharge Admitting Provider: Kendall (Hospitalist) Unit Admitted: IMCU <CAMRYN MCGILL T - Last Filed: 05/13/18 17:12> <ADILSON MCINTOSH - Last Filed: 05/13/18 17:45> - Discharge Clinical Impression: Uroseptic Sepsis Qualifiers: Sepsis type: Escherichia coli Qualified Code(s): A41.51 - Sepsis due to Escherichia coli [E. coli] Condition: Good Disposition: ADMITTED INPATIENT Referrals: ADARSH CUNNINGHAM PA-C [Primary Care Provider] - Follow up as needed
[2018-05-13] MEDS ORDERED: NOREPINEPHRINE BITARTRATE INJ/PF 4 MG/4 ML SDV IV ONE (16:34)
[2018-05-13] MEDS ORDERED: DEXTROSE 5%-WATER 250 ML with NOREPINEPHRINE BITARTRATE 4 MG IV PRN ×4 (16:35→17:33)
[2018-05-13] MEDS ORDERED: ONDANSETRON HCL INJ/PF 4 MG/2 ML SDV IV PRN (17:25)
[2018-05-13] MEDS ORDERED: CEFTRIAXONE INJ 1000 MG VIAL IV SCH (17:30)
[2018-05-13] MEDS ORDERED: GLUCAGON,HUMAN RECOMB 1 MG INJ IM PRN (17:55)
[2018-05-13] MEDS ORDERED: DEXTROSE 50%-WATER 25 GM/50 ML DISP.SYRIN IV PRN ×2 (17:55)
[2018-05-13] MEDS ORDERED: DEXTROSE 40% GEL 15 GM TUBE PO PRN ×2 (17:55)
--- NOTE | 2018-05-13 17:55 | PDOC H&P ---
History of Present Illness Admission Date/PCP: ADARSH CUNNINGHAM PA-C Patient complains of: Came with complaints of flank pain and burning urination History of Present Illness: SEKOU RIVERA is a 48 year old female history of borderline diabetes mellitus, chronic back pain secondary to lumbar fusion on p.o. morphine at home, chronic smoker, anxiety disorder came to the emergency room with complaints of left flank pain from this morning. Associated with burning urination. She is also complaining of increased frequency of urination. Also given the history of fever denies any nausea vomiting diarrhea or constipation. Denies any headaches dizzy spells. Denies any rashes. Denies any other symptoms. Workup done in the ER patient found to be hypotensive started on IV fluids no improvement with IV fluids and has a fever of 102.4 in the emergency room medical consult was called for admission. Went to talk to the patient patient is alert awake oriented communicating well she confirmed history got from the ER physician. Patient is still hypotensive. Decided to place the patient in ICU to start her on Levophed. Past Medical History Pulmonary Medical History: Reports: Chronic Obstructive Pulmonary Disease (COPD) Musculoskeltal Medical History: Reports: Arthritis Psychiatric Medical History: Reports: General Anxiety Disorder Past Surgical History Past Surgical History: Reports: Cholecystectomy, Orthopedic Surgery - spinal sx., Tubal Ligation, Other - Removal of kidney stones, tubal ligation Social History Smoking Status: Current Every Day Smoker Frequency of Alcohol Use: Rare Hx Recreational Drug Use: No - Advance Directive Resuscitation Status: Full Code Family History Family History: Reviewed & Not Pertinent, Arthritis, CAD, DM, Hyperlipidemia, Hypertension, Malignancy Parental Family History Reviewed: Yes - Heart disease Children Family History Reviewed: Yes Sibling(s) Family History Reviewed.: Yes Medication/Allergy Home Medications: Prednisone 40 mg PO DAILY #8 tablet 11/13/16 Prednisone [Deltasone 10 mg Tablet] 10 mg PO ASDIR PRN #21 tablet 06/02/17 Prednisone 5 mg PO ASDIR 6 Days #1 tab.ds.pk 09/25/17 Allergies/Adverse Reactions: banana Allergy (Verified 05/13/18 11:04) codeine Allergy (Verified 05/13/18 11:04) latex Allergy (Verified 05/13/18 11:04) bees Allergy (Uncoded 05/13/18 11:04) dairy Allergy (Uncoded 05/13/18 11:04) Review of Systems Constitutional: PRESENT: chills, fever(s), weakness Eyes: PRESENT: visual disturbances Ears: ABSENT: hearing changes Cardiovascular: ABSENT: chest pain, dyspnea on exertion, orthropnea Respiratory: ABSENT: dyspnea Gastrointestinal: ABSENT: abdominal pain, constipation, diarrhea, heartburn, nausea, vomiting Genitourinary: PRESENT: dysuria, other - His frequency of urination Neurological: PRESENT: dizziness Psychiatric: ABSENT: anxiety, depression, homidical ideation, suicidal ideation Physical Exam Vital Signs: Temp Pulse Resp BP Pulse Ox 98.5 F 112 H 20 100/57 L 96 05/13/18 14:19 05/13/18 11:39 05/13/18 11:16 05/13/18 11:16 05/13/18 11:39 Intake & Output 05/12/18 05/13/18 05/14/18 06:59 06:59 06:59 Intake Total 3000 Balance 3000 Weight 44.4 kg General appearance: PRESENT: mild distress, well-developed Head exam: PRESENT: atraumatic Eye exam: PRESENT: PERRLA Mouth exam: PRESENT: dry mucosa Neck exam: ABSENT: carotid bruit, JVD, lymphadenopathy, thyromegaly Respiratory exam: PRESENT: clear to auscultation ras, decreased breath sounds. ABSENT: rales, rhonchi, wheezes Cardiovascular exam: PRESENT: tachycardia GI/Abdominal exam: PRESENT: normal bowel sounds, soft. ABSENT: distended, guarding, mass, organolmegaly, rebound, tenderness Extremities exam: PRESENT: full ROM. ABSENT: calf tenderness, clubbing, pedal edema Neurological exam: PRESENT: alert, awake, oriented to person, oriented to place, oriented to time, oriented to situation, CN II-XII grossly intact. ABSENT: motor sensory deficit Psychiatric exam: PRESENT: appropriate affect, normal mood. ABSENT: homicidal ideation, suicidal ideation Results Laboratory Results: 05/13/18 12:10 05/13/18 12:10 05/13/18 05/13/18 05/13/18 11:47 12:10 12:10 WBC 7.7 RBC 4.94 Hgb 15.7 H Hct 45.1 MCV 91 MCH 31.8 MCHC 34.9 RDW 13.4 Plt Count 170 Seg Neutrophils % Not Reportable Lymphocytes % Not Reportable Monocytes % Not Reportable Eosinophils % Not Reportable Basophils % Not Reportable Absolute Neutrophils Not Reportable Absolute Lymphocytes Not Reportable Absolute Monocytes Not Reportable Absolute Eosinophils Not Reportable Absolute Basophils Not Reportable VBG pH VBG pCO2 VBG HCO3 VBG Base Excess Sodium 135.8 L Potassium 4.1 Chloride 102 Carbon Dioxide 21 L Anion Gap 13 BUN 14 Creatinine 0.92 Est GFR ( Amer) > 60 Est GFR (Non-Af Amer) > 60 Glucose 100 Lactic Acid Calcium 9.4 Total Bilirubin 1.3 AST 214 H ALT 162 H Alkaline Phosphatase 183 H Total Protein 6.9 Albumin 3.8 Lipase 51.7 Urine Color YELLOW Urine Appearance SLIGHTLY-CLOUDY Urine pH 7.0 Ur Specific Stirling 1.012 Urine Protein 30 H Urine Glucose (UA) NEGATIVE Urine Ketones NEGATIVE Urine Blood LARGE H Urine Nitrite POSITIVE H Ur Leukocyte Esterase TRACE H Urine WBC (Auto) 26 Urine RBC (Auto) >182 05/13/18 05/13/18 14:19 14:19 WBC RBC Hgb Hct MCV MCH MCHC RDW Plt Count Seg Neutrophils % Lymphocytes % Monocytes % Eosinophils % Basophils % Absolute Neutrophils Absolute Lymphocytes Absolute Monocytes Absolute Eosinophils Absolute Basophils VBG pH 7.43 H VBG pCO2 33.7 L VBG HCO3 22.1 VBG Base Excess -1.4 Sodium Potassium Chloride Carbon Dioxide Anion Gap BUN Creatinine Est GFR ( Amer) Est GFR (Non-Af Amer) Glucose Lactic Acid 1.2 Calcium Total Bilirubin AST ALT Alkaline Phosphatase Total Protein Albumin Lipase Urine Color Urine Appearance Urine pH Ur Specific [place] Urine Protein Urine Glucose (UA) Urine Ketones Urine Blood Urine Nitrite Ur Leukocyte Esterase Urine WBC (Auto) Urine RBC (Auto) Impressions: Abdomen/Pelvis CT 05/13/18 13:57 IMPRESSION: Nonobstructing left renal calculi. Chest X-Ray 05/13/18 14:10 IMPRESSION: NO ACUTE RADIOGRAPHIC FINDING IN THE CHEST. Assessment and Plan - Diagnosis (1) Sepsis Qualifiers: Sepsis type: Escherichia coli Qualified Code(s): A41.51 - Sepsis due to Escherichia coli [E. coli] Is this a current diagnosis for this admission?: Yes Plan: 05/13/2018-patient is going to be admitted to ICU as inpatient. Started on Levophed. To continue IV fluids normal saline at 125 cc/h. Fall precautions are requested. Started on IV Rocephin 1 g daily and levofloxacin 750 mg IV daily. GI prophylaxis DVT prophylaxis requested. Follow-up lactic acid levels are requested. Sepsis protocol was implemented. Cultures and urine cultures are pending. Chest x-ray is negative for acute pathology and CT scan was negative for acute pathology. (2) UTI (urinary tract infection) Is this a current diagnosis for this admission?: Yes Plan: 05/13/2018-patient came in with urinary symptoms high fever hypertension urinalysis shows blood is large nitrate is positive and leukocyte esterase is trace. WBC is 26 and RBCs 185 most likely she has UTI. Urine cultures are pending and presently on Levaquin and Rocephin. (3) Tobacco abuse Is this a current diagnosis for this admission?: No Plan: 05/13/2018-patient has history of chronic smoking smokes more than 1 pack/day smoking counseling was provided for more than [address] her on nicotine patch 21 mg daily. (4) Chronic back pain Is this a current diagnosis for this admission?: No Plan: 05/13/2018-patient is given the history of chronic back pain has a lumbar fusion. Taking morphine and hydrocodone at home plan is to resume those medications during the hospital stay. She is also taking gabapentin at home which is going to be resumed. (5) Generalized anxiety disorder Is this a current diagnosis for this admission?: No Plan: 05/13/2018-patient is given the history of anxiety disorder denies any complaints of anxiety during the examination. To put her on alprazolam 0.5 mg p.o. every 6 as needed for anxiety. (6) Hypotension Is this a current diagnosis for this admission?: Yes Plan: 05/13/2018-patient vital signs in the emergency room 100/57 with a temperature of 102.9 and pulse rate of 112. Not responding to IV fluids. Hypotension most likely secondary to sepsis. She was started on Levophed and to continue IV fluids normal saline at 125 cc/h. (7) Diabetes Is this a current diagnosis for this admission?: No Plan: 05/13/2018-patient is given the history of borderline diabetes mellitus not on any medications at home. Plan to check the hemoglobin A1c tomorrow and to start her on insulin sliding scale while she was in the hospital. - Time Time Spent with patient: 15-24 minutes Smoking Cessation Education: over 10 minutes Medications reviewed and adjusted accordingly: Yes Anticipated discharge: Home
[2018-05-13] MEDS ORDERED: NICOTINE 21 MG/24 HR PATCH.TD24 TD ONE (18:30)
[2018-05-13 18:46] LABS: CREATINE KINASE MB < 0.22 ng/mL (<4.55); TROPONIN I < 0.012 ng/mL
[2018-05-13] MEDS: FAMOTIDINE 20 MG TABLET PO SCH (19:09)
[2018-05-13] MEDS: TIZANIDINE HCL 4 MG TABLET PO SCH (19:10)
[2018-05-13] MEDS: DOCUSATE SODIUM 100 MG CAPSULE PO SCH (19:10)
[2018-05-13] MEDS: ENOXAPARIN SODIUM INJ 40 MG/0.4 ML DISP.SYRIN SUBCUT SCH (19:11)
[2018-05-13] MEDS: LEVOFLOXACIN 750 MG/D5W RTU 750 MG/150 ML RTUPB IV SCH (19:15)
--- NOTE | 2018-05-13 19:44 | EKG REPORT ---
SEVERITY:- BORDERLINE ECG - SINUS TACHYCARDIA PROBABLE LEFT ATRIAL ABNORMALITY : Confirmed by: Arsalan Morton MD 13-May-2018 19:43:35
[2018-05-13] MEDS ORDERED: HYDROCODONE/ACETAMINOPHEN 10-325 MG TABLET PO PRN (21:21)
[2018-05-13] MEDS: GABAPENTIN 100 MG CAPSULE PO SCH (21:53)
[2018-05-13] MEDS: MORPHINE SULFATE SR 15 MG TABLET PO SCH (21:54)
[2018-05-13] MEDS ORDERED: MORPHINE SULFATE SR 15 MG TABLET PO SCH (22:00)
[2018-05-13] MEDS: ACETAMINOPHEN 325 MG TABLET PO PRN (23:29)
[2018-05-13 23:45] LABS: CREATINE KINASE MB 0.35 ng/mL (<4.55); TROPONIN I 0.017 ng/mL
[2018-05-14] MEDS ORDERED: NORMAL SALINE 1000 ML 1,000 ML IV ONE (01:41)
[2018-05-14] MEDS: NORMAL SALINE 1000 ML 1,000 ML IV PRN ×2 (03:59→16:36)
[2018-05-14 05:18] LABS: HEMATOCRIT 37.6 % (36.0-47.0); MEAN CORPUSCULAR HEMOGLOBIN 31.5 pg (27.0-33.4); MEAN CORPUSCULAR HGB CONC 34.8 g/dL (32.0-36.0); MEAN CORPUSCULAR VOLUME 91 fl (80-97); PLATELET COUNT 121 10^3/uL (150-450); RED BLOOD COUNT 4.16 10^6/uL (3.72-5.28); RED CELL DISTRIBUTION WIDTH 13.3 % (11.5-14.0)
[2018-05-14 05:41] LABS: ALANINE AMINOTRANSFERASE 191 U/L (9-52); ALBUMIN 2.6 g/dL (3.5-5.0); ALKALINE PHOSPHATASE 149 U/L (38-126); ANION GAP 7 (5-19); ASPARTATE AMINO TRANSFERASE 136 U/L (14-36); BILIRUBIN,DIRECT 1.1 mg/dL (0.0-0.4); BILIRUBIN,TOTAL 1.4 mg/dL (0.2-1.3); BLOOD UREA NITROGEN 13 mg/dL (7-20); CALCIUM 7.7 mg/dL (8.4-10.2); CARBON DIOXIDE 19 mmol/L (22-30); CHLORIDE 113 mmol/L (98-107); CHOLESTEROL 111.96 mg/dL (0-200); CREATINE KINASE 62 U/L (30-135); GLUCOSE 106 mg/dL (75-110); POTASSIUM 3.8 mmol/L (3.6-5.0); SODIUM 138.8 mmol/L (137-145); TOTAL PROTEIN 5.1 g/dL (6.3-8.2); TRIGLYCERIDES 59 mg/dL (<150)
[2018-05-14 05:46] LABS: CREATINE KINASE MB 0.45 ng/mL (<4.55)
[2018-05-14 05:51] LABS: DIRECT LDL 77 mg/dL (<100); TROPONIN I 0.036 ng/mL
[2018-05-14 06:11] LABS: HEMOGLOBIN 13.1 g/dL (12.0-15.5)
[2018-05-14 06:13] LABS: ABSOLUTE LYMPHOCYTES# (MANUAL) 0.6 10^3/uL (0.5-4.7); ABSOLUTE MONOCYTES # (MANUAL) 0.8 10^3/uL (0.1-1.4); ABSOLUTE NEUTROPHILS# (MANUAL) 17.7 10^3/uL (1.7-8.2); BAND NEUTROPHILS % (MANUAL) 7 % (3-5); BASOPHILS % (MANUAL) 0 % (0-2); EOSINOPHILS % (MANUAL) 0 % (0-6); LYMPHOCYTES % (MANUAL) 3 % (13-45); MONOCYTES % (MANUAL) 4 % (3-13); SEGMENTED NEUTROPHILS % (MAN) 86 % (42-78); TOTAL CELLS COUNTED 100
[2018-05-14 06:14] LABS: HYPOCHROMASIA SLIGHT; POLYCHROMASIA SLIGHT
[2018-05-14 06:15] LABS: PLATELET COMMENT ADEQUATE
[2018-05-14] MEDS: FAMOTIDINE 20 MG TABLET PO SCH ×2 (06:23→19:57)
[2018-05-14] MEDS: GABAPENTIN 100 MG CAPSULE PO SCH ×3 (06:23→21:11)
[2018-05-14] MEDS: ENOXAPARIN SODIUM INJ 40 MG/0.4 ML DISP.SYRIN SUBCUT SCH (10:04)
[2018-05-14] MEDS: DOCUSATE SODIUM 100 MG CAPSULE PO SCH ×2 (10:05→19:57)
[2018-05-14] MEDS: MORPHINE SULFATE SR 15 MG TABLET PO SCH ×2 (10:05→21:11)
[2018-05-14] MEDS: TIZANIDINE HCL 4 MG TABLET PO SCH ×3 (10:06→23:29)
[2018-05-14] MEDS ORDERED: NOREPINEPHRINE BITARTRATE INJ/PF 4 MG/4 ML SDV IV ONE (10:23)
[2018-05-14] MEDS: DEXTROSE 5%-WATER 250 ML with NOREPINEPHRINE BITARTRATE 4 MG IV PRN ×2 (10:36)
--- NOTE | 2018-05-14 10:36 | PDOC PROGRESS REPORT ---
Subjective Progress Note for:: 05/14/18 Subjective:: 48 year old female history of borderline diabetes mellitus, chronic back pain secondary to lumbar fusion on p.o. morphine at home, chronic smoker, anxiety disorder came to the emergency room with complaints of left flank pain from this morning. Associated with burning urination. She is also complaining of increased frequency of urination. Also given the history of fever denies any nausea vomiting diarrhea or constipation. Denies any headaches dizzy spells. D enies any rashes. Denies any other symptoms. Workup done in the ER patient found to be hypotensive started on IV fluids no improvement with IV fluids and has a fever of 102.4 in the emergency room medical consult was called for admission. Went to talk to the patient patient is alert awake oriented communicating well she confirmed history got from the ER physician. Patient is still hypotensive. Decided to place the patient in ICU to start her on Levophed. 05/14/2018-no acute events in the last 24 hours. T-max is 98.3 today. She is complaining of the headaches going to do the CT head without contrast today. The blood cultures showing gram-negative rods. Patient is presently on ceftriax one and levofloxacin. Blood pressures are much improved. It is blood pressure is 110/70 with respiratory rate of 22 heart rate of 60. Presently on Levophed and IV fluids normal saline at 125 cc/h. At the time of examination patient is still in the ER. Reason For Visit: SEPSIS Physical Exam Vital Signs: Temp Pulse Resp BP Pulse Ox 98.3 F 60 22 H 110/69 96 05/14/18 06:41 05/14/18 09:10 05/14/18 08:50 05/14/18 08:50 05/14/18 08:50 Intake & Output 05/13/18 05/14/18 05/15/18 06:59 06:59 06:59 Intake Total 5374 505 Output Total 400 350 Balance 4974 155 Weight 44.4 kg General appearance: PRESENT: no acute distress Head exam: PRESENT: atraumatic Eye exam: PRESENT: PERRLA Mouth exam: PRESENT: moist, tongue midline Teeth exam: PRESENT: poor dentation Neck exam: ABSENT: carotid bruit, JVD, lymphadenopathy, thyromegaly Respiratory exam: PRESENT: decreased breath sounds Cardiovascular exam: PRESENT: RRR. ABSENT: diastolic murmur, rubs, systolic murmur GI/Abdominal exam: PRESENT: normal bowel sounds, soft. ABSENT: distended, guarding, mass, organolmegaly, rebound, tenderness Extremities exam: PRESENT: full ROM. ABSENT: calf tenderness, clubbing, pedal edema Neurological exam: PRESENT: alert, awake, oriented to person, oriented to place, oriented to time, oriented to situation, CN II-XII grossly intact. ABSENT: motor sensory deficit Psychiatric exam: PRESENT: appropriate affect, normal mood. ABSENT: homicidal ideation, suicidal ideation Results Laboratory Results: 05/14/18 05:00 05/14/18 05:00 05/13/18 05/13/18 05/13/18 11:47 12:10 12:10 WBC 7.7 RBC 4.94 Hgb 15.7 H Hct 45.1 MCV 91 MCH 31.8 MCHC 34.9 RDW 13.4 Plt Count 170 Seg Neutrophils % Not Reportable Lymphocytes % Not Reportable Monocytes % Not Reportable Eosinophils % Not Reportable Basophils % Not Reportable Absolute Neutrophils Not Reportable Absolute Lymphocytes Not Reportable Absolute Monocytes Not Reportable Absolute Eosinophils Not Reportable Absolute Basophils Not Reportable VBG pH VBG pCO2 VBG HCO3 VBG Base Excess Sodium 135.8 L Potassium 4.1 Chloride 102 Carbon Dioxide 21 L Anion Gap 13 BUN 14 Creatinine 0.92 Est GFR ( Amer) > 60 Est GFR (Non-Af Amer) > 60 Glucose 100 Lactic Acid Calcium 9.4 Total Bilirubin 1.3 AST 214 H ALT 162 H Alkaline Phosphatase 183 H Total Protein 6.9 Albumin 3.8 Triglycerides Cholesterol LDL Cholesterol Direct VLDL Cholesterol HDL Cholesterol Lipase 51.7 TSH Urine Color YELLOW Urine Appearance SLIGHTLY-CLOUDY Urine pH 7.0 Ur Specific [place] 1.012 Urine Protein 30 H Urine Glucose (UA) NEGATIVE Urine Ketones NEGATIVE Urine Blood LARGE H Urine Nitrite POSITIVE H Ur Leukocyte Esterase TRACE H Urine WBC (Auto) 26 Urine RBC (Auto) >182 05/13/18 05/13/18 05/13/18 14:19 14:19 17:50 WBC RBC Hgb Hct MCV MCH MCHC RDW Plt Count Seg Neutrophils % Lymphocytes % Monocytes % Eosinophils % Basophils % Absolute Neutrophils Absolute Lymphocytes Absolute Monocytes Absolute Eosinophils Absolute Basophils VBG pH 7.43 H VBG pCO2 33.7 L VBG HCO3 22.1 VBG Base Excess -1.4 Sodium Potassium Chloride Carbon Dioxide Anion Gap BUN Creatinine Est GFR ( Amer) Est GFR (Non-Af Amer) Glucose Lactic Acid 1.2 1.5 Calcium Total Bilirubin AST ALT Alkaline Phosphatase Total Protein Albumin Triglycerides Cholesterol LDL Cholesterol Direct VLDL Cholesterol HDL Cholesterol Lipase TSH Urine Color Urine Appearance Urine pH Ur Specific [place] Urine Protein Urine Glucose (UA) Urine Ketones Urine Blood Urine Nitrite Ur Leukocyte Esterase Urine WBC (Auto) Urine RBC (Auto) 05/14/18 05/14/18 05/14/18 05:00 05:00 05:00 WBC 19.0 H D RBC 4.16 Hgb 13.1 D Hct 37.6 MCV 91 MCH 31.5 MCHC 34.8 RDW 13.3 Plt Count 121 L Seg Neutrophils % Not Reportable Lymphocytes % Not Reportable Monocytes % Not Reportable Eosinophils % Not Reportable Basophils % Not Reportable Absolute Neutrophils Not Reportable Absolute Lymphocytes Not Reportable Absolute Monocytes Not Reportable Absolute Eosinophils Not Reportable Absolute Basophils Not Reportable VBG pH VBG pCO2 VBG HCO3 VBG Base Excess Sodium 138.8 Potassium 3.8 Chloride 113 H Carbon Dioxide 19 L Anion Gap 7 BUN 13 Creatinine 0.73 Est GFR ( Amer) > 60 Est GFR (Non-Af Amer) > 60 Glucose 106 Lactic Acid Calcium 7.7 L Total Bilirubin 1.4 H AST 136 H ALT 191 H Alkaline Phosphatase 149 H Total Protein 5.1 L Albumin 2.6 L Triglycerides 59 Cholesterol 111.96 LDL Cholesterol Direct 77 VLDL Cholesterol 12.0 HDL Cholesterol 41 Lipase TSH 1.03 Urine Color Urine Appearance Urine pH Ur Specific [place] Urine Protein Urine Glucose (UA) Urine Ketones Urine Blood Urine Nitrite Ur Leukocyte Esterase Urine WBC (Auto) Urine RBC (Auto) 05/13/18 05/13/18 05/13/18 17:50 17:50 23:00 Creatine Kinase 47 53 CK-MB (CK-2) < 0.22 Troponin I < 0.012 05/13/18 05/14/18 05/14/18 23:00 05:00 05:00 Creatine Kinase 62 CK-MB (CK-2) 0.35 0.45 Troponin I 0.017 0.036 Impressions: Abdomen/Pelvis CT 05/13/18 13:57 IMPRESSION: Nonobstructing left renal calculi. Chest X-Ray 05/13/18 14:10 IMPRESSION: NO ACUTE RADIOGRAPHIC FINDING IN THE CHEST. Assessment and Plan - Diagnosis (1) Sepsis Qualifiers: Sepsis type: Escherichia coli Qualified Code(s): A41.51 - Sepsis due to Escherichia coli [E. coli] Is this a current diagnosis for this admission?: Yes Plan: 05/13/2018-patient is going to be admitted to ICU as inpatient. Started on Levophed. To continue IV fluids normal saline at 125 cc/h. Fall precautions are requested. Started on IV Rocephin 1 g daily and levofloxacin 750 mg IV daily. GI prophylaxis DVT prophylaxis requested. Follow-up lactic acid levels are requested. Sepsis protocol was implemented. Cultures and urine cultures are pending. Chest x-ray is negative for acute pathology and CT scan was negative for acute pathology. 05/14/2018-patient admitted for sepsis patient and is still hypotensive on pressors. Receiving IV fluids normal saline at 125 cc/h. Presently on IV Rocephin 1 g daily and IV levofloxacin 750 mg daily. Blood culture positive for gram-negative rods. Chest x-ray was negative for acute pathology. Plan is to taper off the Levophed today for possible. Continue other measures. (2) UTI (urinary tract infection) Is this a current diagnosis for this admission?: Yes Plan: 05/13/2018-patient came in with urinary symptoms high fever hypertension urinalysis shows blood is large nitrate is positive and leukocyte esterase is trace. WBC is 26 and RBCs 185 most likely she has UTI. Urine cultures are pending and presently on Levaquin and Rocephin. 05/14/2018-patient came in with abnormal urinalysis and high fevers hypotension urine culture is pending. Presently on levofloxacin and ceftriaxone. (3) Tobacco abuse Is this a current diagnosis for this admission?: No (4) Chronic back pain Is this a current diagnosis for this admission?: No Plan: 05/13/2018-patient is given the history of chronic back pain has a lumbar fusion. Taking morphine and hydrocodone at home plan is to resume those medications during the hospital stay. She is also taking gabapentin at home which is going to be resumed. 05/14/2018-patient has history of chronic back pain receiving MS Contin and gabapentin on regular basis. (5) Generalized anxiety disorder Is this a current diagnosis for this admission?: No (6) Hypotension Is this a current diagnosis for this admission?: Yes Plan: 05/13/2018-patient vital signs in the emergency room 100/57 with a temperature of 102.9 and pulse rate of 112. Not responding to IV fluids. Hypotension most likely secondary to sepsis. She was started on Levophed and to continue IV fluids normal saline at 125 cc/h. 05/14/2018-blood pressures improved to 110/69 receiving IV fluids normal saline at 125 cc/h on IV Levophed. plan is to tap off the Levophed today on top of the IV fluids today for possible. (7) Diabetes Is this a current diagnosis for this admission?: No Plan: 05/13/2018-patient is given the history of borderline diabetes mellitus not on any medications at home. Plan to check the hemoglobin A1c tomorrow and to start her on insulin sliding scale while she was in the hospital. 05/14/2018-patient is giving history of borderline diabetes mellitus hemoglobin A1c came back 5.1. Diabetes is unlikely. (8) Severe headache Is this a current diagnosis for this admission?: Yes Plan: 05/14/2018-patient is complaining of severe headaches today. Also complaining of questionable blurred vision. No focal neurological deficits. Plan to do the CT head without contrast to rule out any abnormalities. - Time Time Spent with patient: 25-34 minutes Smoking Cessation Education: over 10 minutes Medications reviewed and adjusted accordingly: Yes Anticipated discharge: SNF
[2018-05-14] MEDS: NICOTINE 21 MG/24 HR PATCH.TD24 TD SCH (11:55)
--- NOTE | 2018-05-14 12:48 | RADIOLOGY REPORT (SQ) ---
EXAM DESCRIPTION: CT HEAD WITHOUT COMPLETED DATE/TIME: 05/14/2018 12:20 pm REASON FOR STUDY: severe headache COMPARISON: None. TECHNIQUE: Axial images acquired through the brain without intravenous contrast. Images reviewed wi th bone, brain and subdural windows. Additional sagittal and coronal reconstructions were generated. Images stored on PACS. All CT scanners at this facility use dose modulation, iterative reconstruction, and/or weight based d osing when appropriate to reduce radiation dose to as low as reasonably achievable (ALARA). [facility]: Dose Right [facility]: CareDose [facility]: Dose Right [facility]: Teradose 4D [facility]: [employer] RADIATION DOSE: CT Rad equipment meets quality standard of care and radiation dose reduction techniq ues were employed. CTDIvol: 53.2 mGy. DLP: 1124 mGy-cm. mGy. LIMITATIONS: None. FINDINGS: VENTRICLES: Normal size and contour. CEREBRUM: No masses. No hemorrhage. No midline shift. No evidence for acute infarction. Normal gra y/white matter differentiation. No areas of low density in the white matter. CEREBELLUM: No masses. No hemorrhage. No alteration of density. No evidence for acute infarction. EXTRAAXIAL SPACES: No fluid collections. No masses. ORBITS AND GLOBE: No intra- or extraconal masses. Normal contour of globe without masses. CALVARIUM: No fracture. PARANASAL SINUSES: No fluid or mucosal thickening. SOFT TISSUES: No mass or hematoma. OTHER: No other significant finding. IMPRESSION: NORMAL BRAIN CT WITHOUT CONTRAST. EVIDENCE OF ACUTE STROKE: NO. COMMENT: Quality ID # [id number]: Final reports with documentation of one or more dose reduction techniques (e.g., Automated exposure control, adjustment of the mA and/or kV according to patient size, use of iterative reconstruction technique) TECHNICAL DOCUMENTATION: JOB ID: [id number] [employer]- All Rights Reserved Reading location - IP/workstation name: [email or web address]
[2018-05-14] MEDS: ACETAMINOPHEN 325 MG TABLET PO PRN ×2 (14:09→19:56)
[2018-05-14] MEDS: CEFTRIAXONE SODIUM 1,000 MG in DEXTROSE 5%-WATER 50 ML IV SCH (16:34)
[2018-05-14] MEDS: LEVOFLOXACIN 750 MG/D5W RTU 750 MG/150 ML RTUPB IV SCH (19:55)
[2018-05-15] MEDS: NORMAL SALINE 1000 ML 1,000 ML IV PRN ×2 (01:56→03:04)
[2018-05-15] MEDS: ACETAMINOPHEN 325 MG TABLET PO PRN (01:59)
[2018-05-15] MEDS ORDERED: NORMAL SALINE 1000 ML 1,000 ML IV ONE ×2 (02:30→16:13)
[2018-05-15] MEDS: HYDROCODONE/ACETAMINOPHEN 10-325 MG TABLET PO PRN (03:25)
--- NOTE | 2018-05-15 04:21 | RADIOLOGY REPORT (SQ) ---
EXAM DESCRIPTION: XR CHEST 1 VIEW COMPLETED DATE/TME: 05/15/2018 00:00 CLINICAL HISTORY: 48 years Female, SOB COMPARISON: None. NUMBER OF VIEWS/TECHNIQUE: 1/AP FINDINGS: Increased lung volume, moderate mixed interstitial and airspace opacity with central lower predominance normal cardiac silhouette, and intact bony thorax. IMPRESSION: Moderate central pulmonary edema pattern. Differential diagnosis includes multifocal pneumonia and/or chronic interstitial lung disease.
[2018-05-15] MEDS: FAMOTIDINE 20 MG TABLET PO SCH ×2 (06:29→17:18)
[2018-05-15] MEDS: GABAPENTIN 100 MG CAPSULE PO SCH ×3 (06:29→21:38)
--- NOTE | 2018-05-15 06:46 | EKG REPORT ---
SEVERITY:- NORMAL ECG - SINUS RHYTHM : Confirmed by: Arsalan Morton MD 15-May-2018 06:46:11
[2018-05-15 09:02] LABS: ABSOLUTE EOSINOPHILS # (AUTO) 0.2 10^3/uL (0.0-0.6); ABSOLUTE LYMPHOCYTES (AUTO) 0.7 10^3/uL (0.5-4.7); ABSOLUTE MONOCYTES (AUTO) 0.6 10^3/uL (0.1-1.4); ABSOLUTE NEUT (AUTO) 11.6 10^3/uL (1.7-8.2); BASOPHILS % (AUTO) 0.3 % (0-2); EOSINOPHILS % (AUTO) 1.6 % (0-6); HEMATOCRIT 35.3 % (36.0-47.0); HEMOGLOBIN 12.1 g/dL (12.0-15.5); LYMPHOCYTES % (AUTO) 5.6 % (13-45); MEAN CORPUSCULAR HGB CONC 34.2 g/dL (32.0-36.0); MEAN CORPUSCULAR VOLUME 91 fl (80-97); MONOCYTES % (AUTO) 4.3 % (3-13); RED CELL DISTRIBUTION WIDTH 13.5 % (11.5-14.0); SEGMENTED NEUTROPHILS % (AUTO) 88.2 % (42-78); TOTAL CELLS COUNTED % (AUTO) 100 %; WHITE BLOOD COUNT 13.2 10^3/uL (4.0-10.5)
[2018-05-15] MEDS: MORPHINE SULFATE SR 15 MG TABLET PO SCH ×2 (09:13→21:37)
[2018-05-15] MEDS: DOCUSATE SODIUM 100 MG CAPSULE PO SCH ×2 (09:13→17:18)
[2018-05-15] MEDS: ENOXAPARIN SODIUM INJ 40 MG/0.4 ML DISP.SYRIN SUBCUT SCH (09:14)
[2018-05-15] MEDS: TIZANIDINE HCL 4 MG TABLET PO SCH ×2 (09:14→21:38)
[2018-05-15] MEDS: NICOTINE 21 MG/24 HR PATCH.TD24 TD SCH (09:14)
[2018-05-15 09:23] LABS: ALANINE AMINOTRANSFERASE 106 U/L (9-52); ALBUMIN 2.4 g/dL (3.5-5.0); ALKALINE PHOSPHATASE 131 U/L (38-126); ASPARTATE AMINO TRANSFERASE 40 U/L (14-36); BILIRUBIN,DIRECT 0.4 mg/dL (0.0-0.4); BILIRUBIN,TOTAL 0.6 mg/dL (0.2-1.3); BLOOD UREA NITROGEN 9 mg/dL (7-20); GLUCOSE 86 mg/dL (75-110); POTASSIUM 3.7 mmol/L (3.6-5.0); TOTAL PROTEIN 4.8 g/dL (6.3-8.2)
[2018-05-15 09:25] LABS: PLATELET COUNT 97 10^3/uL (150-450)
[2018-05-15 09:28] LABS: CARBON DIOXIDE 20 mmol/L (22-30); CHLORIDE 117 mmol/L (98-107); SODIUM 139.4 mmol/L (137-145)
[2018-05-15 09:32] LABS: ANION GAP 2 (5-19)
[2018-05-15] MEDS: BUTALB/ACETAMINOPHEN/CAFFEINE 1 TAB EACH PO PRN ×2 (13:16→20:42)
[2018-05-15] MEDS: CEFTRIAXONE SODIUM 1,000 MG in DEXTROSE 5%-WATER 50 ML IV SCH (14:44)
[2018-05-15] MEDS ORDERED: NORMAL SALINE 1000 ML 1,000 ML IV PRN (16:13)
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
[2018-05-15 20:00] LABS: CHLAM PCR NOT DETECTED (NOT DETECT); GON PCR NOT DETECTED (NOT DETECT)
[2018-05-16] MEDS: HYDROCODONE/ACETAMINOPHEN 10-325 MG TABLET PO PRN ×2 (00:07→10:20)
[2018-05-16] MEDS ORDERED: LORAZEPAM 0.5 MG TABLET PO PRN (00:32)
[2018-05-16] MEDS: FAMOTIDINE 20 MG TABLET PO SCH (05:04)
[2018-05-16] MEDS: GABAPENTIN 100 MG CAPSULE PO SCH (05:04)
[2018-05-16 05:14] LABS: HEMATOCRIT 31.8 % (36.0-47.0); HEMOGLOBIN 11.1 g/dL (12.0-15.5); MEAN CORPUSCULAR HEMOGLOBIN 31.8 pg (27.0-33.4); MEAN CORPUSCULAR HGB CONC 34.9 g/dL (32.0-36.0); RED CELL DISTRIBUTION WIDTH 13.1 % (11.5-14.0); WHITE BLOOD COUNT 9.2 10^3/uL (4.0-10.5)
[2018-05-16 05:22] LABS: MEAN CORPUSCULAR VOLUME 91 fl (80-97)
[2018-05-16 05:28] LABS: ALANINE AMINOTRANSFERASE 70 U/L (9-52); ALBUMIN 2.3 g/dL (3.5-5.0); ALKALINE PHOSPHATASE 122 U/L (38-126); ANION GAP 6 (5-19); ASPARTATE AMINO TRANSFERASE 21 U/L (14-36); BILIRUBIN,DIRECT 0.3 mg/dL (0.0-0.4); BILIRUBIN,TOTAL 0.5 mg/dL (0.2-1.3); BLOOD UREA NITROGEN 7 mg/dL (7-20); CALCIUM 8.2 mg/dL (8.4-10.2); CARBON DIOXIDE 19 mmol/L (22-30); CHLORIDE 116 mmol/L (98-107); GLUCOSE 96 mg/dL (75-110); POTASSIUM 3.1 mmol/L (3.6-5.0); SODIUM 141.1 mmol/L (137-145); TOTAL PROTEIN 4.7 g/dL (6.3-8.2)
[2018-05-16 05:35] LABS: PLATELET COUNT 91 10^3/uL (150-450)
--- NOTE | 2018-05-16 09:32 | EKG REPORT ---
SEVERITY:- NORMAL ECG - SINUS RHYTHM : Confirmed by: Arsalan Morton MD 16-May-2018 09:32:08
[2018-05-16] MEDS: DOCUSATE SODIUM 100 MG CAPSULE PO SCH (10:18)
[2018-05-16] MEDS: NICOTINE 21 MG/24 HR PATCH.TD24 TD SCH (10:18)
[2018-05-16] MEDS: BUTALB/ACETAMINOPHEN/CAFFEINE 1 TAB EACH PO PRN (10:19)
[2018-05-16] MEDS: MORPHINE SULFATE SR 15 MG TABLET PO SCH (10:19)
[2018-05-16] MEDS: ENOXAPARIN SODIUM INJ 40 MG/0.4 ML DISP.SYRIN SUBCUT SCH (10:20)
[2018-05-16] MEDS: TIZANIDINE HCL 4 MG TABLET PO SCH (10:20)
[2018-05-16] MEDS ORDERED: CIPROFLOXACIN 400 MG/D5W RTU 400 MG/200 ML RTUPB IV ONE (11:24)
[2018-05-16 12:43] VITALS: BP 122/76
--- NOTE | 2018-05-16 12:45 | PDOC PROGRESS REPORT ---
Subjective Progress Note for:: 05/16/18 Subjective:: SEKOU RIVERA is a 48 year old female history of borderline diabetes mellitus, chronic back pain secondary to lumbar fusion on p.o. morphine at home, chronic smoker, anxiety disorder came to the emergency room with complaints of left flank pain. UA (+) for UTI. The patient was HYPOtensive requiring Levophed, initially treated for sepsis/UTI with Levaquin and Rocephin. The patient was seen this morning on rounds, she is resting comfortably in bed on supplemental oxygen. Patient has no complaints this morning, the patient states she is ready to go home, she is adamant that she does not want to stay in the hospital any longer. Explained the risks of leaving the hospital prematurely, she states understanding. Patient states she wants to leave AMA. Blood cultures and sensitivities resulted today, (+) E. coli bacteremia. Switch antibiotics from ceftriaxone to ciprofloxacin for better sensitivity. Plan to administer first dose of IV ciprofloxacin while inpatient. As long as patient does not have allergic reaction to medication, the patient reports she plans to leave AMA today. Reason For Visit: SEPSIS Physical Exam Vital Signs: Temp Pulse Resp BP Pulse Ox 97.4 F 85 24 H 115/72 99 05/16/18 07:55 05/16/18 07:55 05/16/18 07:55 05/16/18 07:55 05/16/18 07:55 Intake & Output 05/15/18 05/16/18 05/17/18 06:59 06:59 06:59 Intake Total 4530 1752 Output Total 2305 1000 Balance 2225 752 Weight 68.5 kg 71.2 kg General appearance: PRESENT: thin Head exam: PRESENT: atraumatic Eye exam: PRESENT: conjunctiva pink, PERRLA Mouth exam: PRESENT: moist, tongue midline Teeth exam: PRESENT: poor dentation Respiratory exam: PRESENT: clear to auscultation ras, symmetrical, unlabored Cardiovascular exam: PRESENT: RRR Pulses: PRESENT: normal radial pulses, normal dorsalis pedis pul Vascular exam: PRESENT: normal capillary refill GI/Abdominal exam: PRESENT: soft. ABSENT: distended, tenderness Rectal exam: PRESENT: deferred Extremities exam: PRESENT: full ROM Musculoskeletal exam: PRESENT: ambulatory, full ROM Neurological exam: PRESENT: alert, awake, oriented to person, oriented to place, oriented to time, oriented to situation Psychiatric exam: PRESENT: appropriate affect Skin exam: PRESENT: dry, intact, normal color Results Laboratory Results: 05/16/18 03:52 05/16/18 03:52 05/16/18 05/16/18 03:52 03:52 WBC 9.2 RBC 3.50 L Hgb 11.1 L Hct 31.8 L MCV 91 MCH 31.8 MCHC 34.9 RDW 13.1 Plt Count 91 L Sodium 141.1 Potassium 3.1 L Chloride 116 H Carbon Dioxide 19 L Anion Gap 6 BUN 7 Creatinine 0.58 Est GFR ( Amer) > 60 Est GFR (Non-Af Amer) > 60 Glucose 96 Calcium 8.2 L Magnesium 1.8 Total Bilirubin 0.5 AST 21 ALT 70 H Alkaline Phosphatase 122 Total Protein 4.7 L Albumin 2.3 L 05/13/18 14:19 Blood Blood Culture - Final Micrococcus Species 05/13/18 15:34 Blood Blood Culture - Final Escherichia Coli 05/13/18 11:47 Clean Catch Midstream Urine Culture - Final Escherichia Coli 05/13/18 05/13/18 05/13/18 17:50 17:50 23:00 Creatine Kinase 47 53 CK-MB (CK-2) < 0.22 Troponin I < 0.012 05/13/18 05/14/18 05/14/18 23:00 05:00 05:00 Creatine Kinase 62 CK-MB (CK-2) 0.35 0.45 Troponin I 0.017 0.036 Impressions: Abdomen/Pelvis CT 05/13/18 13:57 IMPRESSION: Nonobstructing left renal calculi. Head CT 05/14/18 00:00 IMPRESSION: NORMAL BRAIN CT WITHOUT CONTRAST. EVIDENCE OF ACUTE STROKE: NO. Chest X-Ray 05/15/18 00:00 IMPRESSION: Moderate central pulmonary edema pattern. Differential diagnosis includes multifocal pneumonia and/or chronic interstitial lung disease. Status: Imported from PACS Assessment and Plan - Diagnosis (1) Sepsis Qualifiers: Sepsis type: Escherichia coli Qualified Code(s): A41.51 - Sepsis due to Escherichia coli [E. coli] Is this a current diagnosis for this admission?: Yes Plan: Resolved Secondary to UTI Urine culture positive for E. coli Blood cultures pending, preliminary reading positive for GNR Continue IV antibiotics, Levaquin and Rocephin (2) UTI (urinary tract infection) Is this a current diagnosis for this admission?: Yes Plan: UA (+) UTI Nitrite positive Trace leuk esterase WBCs 26 Urine culture positive for E. coli, resistant to Bactrim, Augmentin and ampicillin Change from ceftriaxone to ciprofloxacin for better sensitivity (3) Tobacco abuse Is this a current diagnosis for this admission?: No Plan: Patient endorses smoking approximately 1 pack/day for the last 15 years Counseled patient regarding smoking cessation Continue nicotine patch (4) Chronic back pain Qualifiers: Back pain location: low back pain Is this a current diagnosis for this admission?: No Plan: Prior history of lumbar fusion Resume home dose gabapentin and MS Contin Patient reports she is comfortable, denies back pain at this time (5) Generalized anxiety disorder Is this a current diagnosis for this admission?: No Plan: Patient endorses anxiety Does not take home medications Continue alprazolam 0.5 mg p.o. every 6 as needed for anxiety. (6) Hypotension Is this a current diagnosis for this admission?: Yes Plan: Improving Continue maintenance IVF Stemming from sepsis due to UTI Was on Levophed gtt, now d/c'd - Time Time Spent with patient: 15-24 minutes Medications reviewed and adjusted accordingly: Yes Anticipated discharge: Home - Plan Summary Plan Summary: PATIENT IS PLANNING TO LEAVE [place]
[2018-05-16] MEDS ORDERED: CIPROFLOXACIN 400 MG/D5W RTU 400 MG/200 ML RTUPB IV SCH (13:00)
--- NOTE | 2018-05-25 04:54 | Left Against Medical Advice ---
Against Medical Advice Admission Date/Time: 05/13/18 18:00 Primary Care Provider: ADARSH CUNNINGHAM PA-C Date of Patient Emigration: 05/16/18 - Diagnosis: (1) Sepsis Is this a current diagnosis for this admission?: Yes (2) UTI (urinary tract infection) Is this a current diagnosis for this admission?: Yes (3) Tobacco abuse Is this a current diagnosis for this admission?: Yes (4) Chronic back pain Is this a current diagnosis for this admission?: Yes (5) Generalized anxiety disorder Is this a current diagnosis for this admission?: No (6) Hypotension Is this a current diagnosis for this admission?: Yes - Summary: Summary: Please see Admission and Progress Notes as well. SEKOU RIVERA is a 48 F, who LEFT AGAINST MEDICAL ADVICE. The Patient was admitted on 05/13/18 18:00. SEKOU RIVERA is a 48 year old female history of borderline diabetes mellitus, chronic back pain secondary to lumbar fusion on p.o. morphine at home, chronic smoker, anxiety disorder came to the emergency room with complaints of left flank pain. UA (+) for UTI. The patient was HYPOtensive requiring Levophed, initially treated for sepsis/UTI with Levaquin and Rocephin. Blood cultures and sensitivities resulted (+) E. coli bacteremia. Switched antibiotics from ceftriaxone to ciprofloxacin for better sensitivity. Informed the patient that we would have to keep her inpatient until her blood cultures were negative (approximately another 3 days), the patient refused and stated she 'needed to get home to take care of' her kids. Explained the risks of leaving the hospital prior to completion of treatment, the patient stated understanding and that she still plans to leave AMA today. Administered first dose of IV ciprofloxacin while inpatient. Patient did not have allergic reaction to medication, sent her home with prescription for ciprofloxacin. The patient signed out AMA at approximately 1400.
== END 2018-05-16 14:35 | disposition left against medical advice (07) | DRG 872 ==
LOC: ER 11:02 → EH 18:00 → 3N 05-14 19:28
PROVIDERS: ADMIT Internal Medicine; ATTEND Internal Medicine
DX: A41.51 Sepsis due to Escherichia coli [E. coli] (principal); N39.0 Urinary tract infection, site not specified; E11.9 Type 2 diabetes mellitus without complications; F41.9 Anxiety disorder, unspecified; J44.9 Chronic obstructive pulmonary disease, unspecified; M19.90 Unspecified osteoarthritis, unspecified site; F41.1 Generalized anxiety disorder; F17.210 Nicotine dependence, cigarettes, uncomplicated; I95.9 Hypotension, unspecified; R73.03 Prediabetes; G89.29 Other chronic pain; Z53.29 Procedure and treatment not carried out because of patient's decision for other reasons; Z98.1 Arthrodesis status; Z90.49 Acquired absence of other specified parts of digestive tract; Z79.52 Long term (current) use of systemic steroids; Z88.6 Allergy status to analgesic agent; Z91.030 Bee allergy status; Z91.040 Latex allergy status; Z91.011 Allergy to milk products; Z91.018 Allergy to other foods; Z82.61 Family history of arthritis; Z80.9 Family history of malignant neoplasm, unspecified; Z82.49 Family history of ischemic heart disease and other diseases of the circulatory system
CPT/HCPCS: 36415; 51702; 70450; 71045; 71046; 74176; 80053; 80061; 81001; 82550; 82553; 82803; 82962; 83036; 83605; 83690; 83735; 84443; 84484; 84702; 85025; 85027; 85610; 87040; 87077; 87086; 87088; 87186; 87491; 87591; 93005; 93010; 96361; 96365; 96375; 99291; J0696; J0744; J1650; J1885; J1956; J2405; J3490; J7030; J7060

== ENCOUNTER 2019-07-09 22:31 | Emergency (ER) | payer MEDICARE, MEDICAID ==
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
--- NOTE | 2019-07-10 01:08 | RADIOLOGY REPORT (SQ) ---
EXAM DESCRIPTION: Three views of the right foot CLINICAL HISTORY: 49 years Female, laceration object struck foot. Pain. Dorsal surface lateral side of the fifth metatarsal. COMPARISON: None. FINDINGS: Alignment of the foot is anatomic. Bone mineralization is normal. No radiopaque foreign body is seen in the soft tissues. No fracture is identified. A well-corticated accessory ossicle is noted adjacent to the cuboid. No erosions or periostitis. IMPRESSION: No radiopaque foreign body. No fracture.
[2019-07-10 01:37] VITALS: BP 124/88
== END 2019-07-10 01:37 | disposition home or self-care (01) ==
LOC: ER 22:31
DX: S91.311A Laceration without foreign body, right foot, initial encounter (principal); X99.1XXA Assault by knife, initial encounter; F17.200 Nicotine dependence, unspecified, uncomplicated; J44.9 Chronic obstructive pulmonary disease, unspecified; Z91.018 Allergy to other foods; Z88.6 Allergy status to analgesic agent; Z88.5 Allergy status to narcotic agent; Z91.040 Latex allergy status; Z91.030 Bee allergy status
CPT/HCPCS: 99284

== ENCOUNTER 2019-07-19 10:25 | Emergency (ER) | payer OTHER, MEDICARE, MEDICAID ==
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
[2019-07-19 11:46] LABS: ABSOLUTE BASOPHILS # (AUTO) 0.1 10^3/uL (0.0-0.2); ABSOLUTE EOSINOPHILS # (AUTO) 0.1 10^3/uL (0.0-0.6); ABSOLUTE LYMPHOCYTES (AUTO) 2.3 10^3/uL (0.5-4.7); ABSOLUTE MONOCYTES (AUTO) 0.6 10^3/uL (0.1-1.4); ABSOLUTE NEUT (AUTO) 4.9 10^3/uL (1.7-8.2); BASOPHILS % (AUTO) 1.2 % (0-2); HEMATOCRIT 44.9 % (36.0-47.0); HEMOGLOBIN 15.6 g/dL (12.0-15.5); MEAN CORPUSCULAR HEMOGLOBIN 31.9 pg (27.0-33.4); MEAN CORPUSCULAR HGB CONC 34.7 g/dL (32.0-36.0); MEAN CORPUSCULAR VOLUME 92 fl (80-97); MONOCYTES % (AUTO) 7.3 % (3-13); PLATELET COUNT 183 10^3/uL (150-450); RED BLOOD COUNT 4.88 10^6/uL (3.72-5.28); RED CELL DISTRIBUTION WIDTH 13.3 % (11.5-14.0); SEGMENTED NEUTROPHILS % (AUTO) 61.5 % (42-78); TOTAL CELLS COUNTED % (AUTO) 100 %
[2019-07-19 12:05] LABS: ALBUMIN 4.2 g/dL (3.5-5.0); ALKALINE PHOSPHATASE 98 U/L (38-126); ANION GAP 7 (5-19); ASPARTATE AMINO TRANSFERASE 31 U/L (14-36); BILIRUBIN,TOTAL 0.5 mg/dL (0.2-1.3); BLOOD UREA NITROGEN 12 mg/dL (7-20); CALCIUM 9.5 mg/dL (8.4-10.2); CARBON DIOXIDE 25 mmol/L (22-30); CHLORIDE 106 mmol/L (98-107); GLUCOSE 98 mg/dL (75-110); POTASSIUM 4.3 mmol/L (3.6-5.0); TOTAL PROTEIN 7.3 g/dL (6.3-8.2)
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
[2019-07-19] MEDS ORDERED: KETOROLAC TROMETHAMINE 60 MG/2 ML SDV IM ONE (13:14)
--- NOTE | 2019-07-19 13:16 | RADIOLOGY REPORT (SQ) ---
EXAM DESCRIPTION: CT HEAD WITHOUT IMAGES COMPLETED DATE/TIME: 07/19/2019 1:02 pm REASON FOR STUDY: eval for neck trauma COMPARISON: None. TECHNIQUE: Axial images acquired through the brain without intravenous contrast. Images reviewed wi th bone, brain and subdural windows. Additional sagittal and coronal reconstructions were generated. Images stored on PACS. All CT scanners at this facility use dose modulation, iterative reconstruction, and/or weight based d osing when appropriate to reduce radiation dose to as low as reasonably achievable (ALARA). [facility]: Dose Right [facility]: CareDose [facility]: Dose Right [facility]: Teradose 4D [facility]: GlossyBox RADIATION DOSE: CT Rad equipment meets quality standard of care and radiation dose reduction techniq ues were employed. CTDIvol: 53.2 mGy. DLP: 1150 mGy-cm. mGy. LIMITATIONS: None. FINDINGS: VENTRICLES: Normal size and contour. CEREBRUM: No masses. No hemorrhage. No midline shift. No evidence for acute infarction. Normal gra y/white matter differentiation. No areas of low density in the white matter. CEREBELLUM: No masses. No hemorrhage. No alteration of density. No evidence for acute infarction. EXTRAAXIAL SPACES: No fluid collections. No masses. ORBITS AND GLOBE: No intra- or extraconal masses. Normal contour of globe without masses. CALVARIUM: No fracture. PARANASAL SINUSES: No fluid or mucosal thickening. SOFT TISSUES: No mass or hematoma. OTHER: No other significant finding. IMPRESSION: NORMAL BRAIN CT WITHOUT CONTRAST. EVIDENCE OF ACUTE STROKE: NO. COMMENT: Quality ID # [id number]: Final reports with documentation of one or more dose reduction techniques (e.g., Automated exposure control, adjustment of the mA and/or kV according to patient size, use of iterative reconstruction technique) TECHNICAL DOCUMENTATION: JOB ID: [id number] 2010 [employer]- All Rights Reserved Reading location - IP/workstation name: [email or web address]
--- NOTE | 2019-07-19 13:16 | RADIOLOGY REPORT (SQ) ---
EXAM DESCRIPTION: CT CERVICAL SPINE WITHOUT IMAGES COMPLETED DATE/TIME: 07/19/2019 1:02 pm REASON FOR STUDY: eval for neck trauma COMPARISON: None. TECHNIQUE: Axial images acquired through the cervical spine without intravenous contrast. Images re viewed with lung, soft tissue and bone windows. Reconstructed coronal and sagittal MPR images review ed. Images stored on PACS. All CT scanners at this facility use dose modulation, iterative reconstruction, and/or weight based d osing when appropriate to reduce radiation dose to as low as reasonably achievable (ALARA). [facility]: Dose Right [facility]: CareDose [facility]: Dose Right [facility]: Teradose 4D [facility]: [employer]AW RADIATION DOSE: CT Rad equipment meets quality standard of care and radiation dose reduction techniq ues were employed. CTDIvol: 18.6 mGy. DLP: 370 mGy-cm. mGy. LIMITATIONS: None. FINDINGS: ALIGNMENT: Anatomic. MINERALIZATION: Normal. VERTEBRAL BODIES: No fractures or dislocation. DISCS: No significant disc disease. FACETS, LATERAL MASSES, POSTERIOR ELEMENTS: No fractures. No dislocation. No acute findings. HARDWARE: None in the spine. VISUALIZED RIBS: No fractures. LUNG APICES AND SOFT TISSUES: No significant or acute findings. OTHER: No other significant finding. IMPRESSION: NO ACUTE OR SIGNIFICANT FINDINGS IN THE CERVICAL SPINE. TECHNICAL DOCUMENTATION: JOB ID: [id number] Quality ID # [id number]: Final reports with documentation of one or more dose reduction techniques (e.g., Au tomated exposure control, adjustment of the mA and/or kV according to patient size, use of iterative reconstruction technique) 2010 [employer]- All Rights Reserved Reading location - IP/workstation name: [email or web address]
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
[2019-07-19 14:57] VITALS: BP 103/64
== END 2019-07-19 14:57 | disposition home or self-care (01) ==
LOC: ER 10:25
DX: S16.1XXA Strain of muscle, fascia and tendon at neck level, initial encounter (principal); S43.409A Unspecified sprain of unspecified shoulder joint, initial encounter; R51 Headache; M54.2 Cervicalgia; R20.0 Anesthesia of skin; M25.512 Pain in left shoulder; M25.511 Pain in right shoulder; V49.40XA Driver injured in collision with unspecified motor vehicles in traffic accident, initial encounter; R53.1 Weakness; F17.200 Nicotine dependence, unspecified, uncomplicated; J44.9 Chronic obstructive pulmonary disease, unspecified; Z79.899 Other long term (current) drug therapy; Z79.891 Long term (current) use of opiate analgesic; Z91.018 Allergy to other foods; Z88.6 Allergy status to analgesic agent; Z88.5 Allergy status to narcotic agent; Z91.041 Radiographic dye allergy status; Z91.030 Bee allergy status; Z87.81 Personal history of (healed) traumatic fracture
CPT/HCPCS: 99284; 96372; 36415; 83690; 84703; 85025; 80053; 73030; 70450; 72125; J1885

== ENCOUNTER 2020-01-24 12:08 | Emergency (ER) | payer MEDICARE, MEDICAID ==
--- NOTE | 2020-01-24 12:45 | ER Document Report ---
ED Medical Screen (RME) - General Chief Complaint: Neck Pain >24hrs old Stated Complaint: NECK PAIN Time Seen by Provider: 01/24/20 12:30 Primary Care Provider: ADARSH CUNNINGHAM PA-C [Primary Care Provider] - Follow up as needed TRAVEL OUTSIDE OF THE [place] IN LAST 30 DAYS: No - HPI Notes: 01/24/20 12:39 49-year-old female who has a complicated orthopedic history presents to the e mergency room for severe headache, reports worst headache of her life that started last night as well as neck pain that starts at the nape of her neck down to her shoulder blades that she describes as a burning "sharp, constant pain that has become progressively worse. She did contact her orthopedics office today, they advised her to go to the emergency room for evaluation. Patient states she does have a history of migraines but this feels "different". Denies any blurred vision, double vision loss of vision. Denies any weakness in arms bilaterally. I have greeted and performed a rapid initial assessment of this patient. A comprehensive ED assessment and evaluation of the patient, analysis of test results and completion of the medical decision making process will be conducted by additional ED providers. PHYSICAL EXAMINATION: GENERAL: Well-appearing, well-nourished and in no acute distress. HEAD: Atraumatic, normocephalic. EYES: Pupils equal round extraocular movements intact, conjunctiva are normal. NECK: c spine tenderness C4-C6 CV: s1, s2 regular LUNGS: No respiratory distress Musculoskeletal: Normal range of motion. R<L strength in BUE. 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 NEUROLOGICAL: Normal speech, normal gait. SKIN: Warm, Dry, normal turgor, no rashes or lesions noted. No rash on neck where patient is having pain - Related Data Allergies/Adverse Reactions: banana Allergy (Verified 05/13/18 11:04) codeine Allergy (Verified 05/13/18 11:04) latex Allergy (Verified 05/13/18 11:04) bees Allergy (Uncoded 05/13/18 11:04) dairy Allergy (Uncoded 05/13/18 11:04) Past Medical History Pulmonary Medical History: Reports: Hx COPD Renal/ Medical History: Denies: Hx Peritoneal Dialysis Musculoskeltal Medical History: Reports Hx Arthritis, Reports Hx Musculoskeletal Deformity, Reports Hx Musculoskeletal Trauma Psychiatric Medical History: Reports: Hx Anxiety Traumatic Medical History: Reports: Hx Fractures, Hx Spine Fracture Past Surgical History: Reports: Hx Cholecystectomy, Hx Gynecologic Surgery - tubal ligation, Hx Orthopedic Surgery - spinal sx., Hx Tubal Ligation, Other - Removal of kidney stones, tubal ligation Physical Exam - Vital signs Vitals: Temp Pulse Resp BP Pulse Ox 98.3 F 102 H 20 144/82 H 99 01/24/20 12:15 01/24/20 12:15 01/24/20 12:15 01/24/20 12:15 01/24/20 12:15 Course - Vital Signs Vital signs: Temp Pulse Resp BP Pulse Ox 98.3 F 102 H 20 144/82 H 99 01/24/20 12:15 01/24/20 12:15 01/24/20 12:15 01/24/20 12:15 01/24/20 12:15 Doctor's Discharge - Discharge Referrals: ADARSH CUNNINGHAM PA-C [Primary Care Provider] - Follow up as needed
[2020-01-24 13:12] LABS: ABSOLUTE BASOPHILS # (AUTO) 0.1 10^3/uL (0.0-0.2); ABSOLUTE EOSINOPHILS # (AUTO) 0.1 10^3/uL (0.0-0.6); ABSOLUTE LYMPHOCYTES (AUTO) 2.4 10^3/uL (0.5-4.7); ABSOLUTE MONOCYTES (AUTO) 0.5 10^3/uL (0.1-1.4); ABSOLUTE NEUT (AUTO) 6.5 10^3/uL (1.7-8.2); BASOPHILS % (AUTO) 0.9 % (0-2); EOSINOPHILS % (AUTO) 0.6 % (0-6); HEMATOCRIT 44.9 % (36.0-47.0); HEMOGLOBIN 15.6 g/dL (12.0-15.5); LYMPHOCYTES % (AUTO) 25.3 % (13-45); MEAN CORPUSCULAR HEMOGLOBIN 31.7 pg (27.0-33.4); MEAN CORPUSCULAR HGB CONC 34.7 g/dL (32.0-36.0); MEAN CORPUSCULAR VOLUME 91 fl (80-97); MONOCYTES % (AUTO) 4.9 % (3-13); PLATELET COUNT 243 10^3/uL (150-450); RED BLOOD COUNT 4.92 10^6/uL (3.72-5.28); RED CELL DISTRIBUTION WIDTH 13.1 % (11.5-14.0); SEGMENTED NEUTROPHILS % (AUTO) 68.3 % (42-78); TOTAL CELLS COUNTED % (AUTO) 100 %; WHITE BLOOD COUNT 9.5 10^3/uL (4.0-10.5)
[2020-01-24 13:31] LABS: ALBUMIN 4.3 g/dL (3.5-5.0); ALKALINE PHOSPHATASE 164 U/L (38-126); ANION GAP 7 (5-19); ASPARTATE AMINO TRANSFERASE 177 U/L (14-36); BILIRUBIN,DIRECT 0.2 mg/dL (0.0-0.4); BILIRUBIN,TOTAL 0.5 mg/dL (0.2-1.3); BLOOD UREA NITROGEN 9 mg/dL (7-20); CALCIUM 10.4 mg/dL (8.4-10.2); CARBON DIOXIDE 30 mmol/L (22-30); CHLORIDE 102 mmol/L (98-107); GLUCOSE 103 mg/dL (75-110); POTASSIUM 4.4 mmol/L (3.6-5.0); TOTAL PROTEIN 7.3 g/dL (6.3-8.2)
--- NOTE | 2020-01-24 15:01 | RADIOLOGY REPORT (SQ) ---
EXAM DESCRIPTION: CT HEAD WITHOUT IMAGES COMPLETED DATE/TIME: 01/24/2020 2:39 pm REASON FOR STUDY: worst CRAWFORD, loss of feeling in forehead COMPARISON: 07/19/2019 TECHNIQUE: Axial images acquired through the brain without intravenous contrast. Images reviewed wi th bone, brain and subdural windows. Additional sagittal and coronal reconstructions were generated. Images stored on PACS. All CT scanners at this facility use dose modulation, iterative reconstruction, and/or weight based d osing when appropriate to reduce radiation dose to as low as reasonably achievable (ALARA). [facility]: Dose Right [facility]: CareDose [facility]: Dose Right [facility]: Teradose 4D [facility]: Smart [employer] RADIATION DOSE: CT Rad equipment meets quality standard of care and radiation dose reduction techniq ues were employed. CTDIvol: 53.2 mGy. DLP: 937 mGy-cm. mGy. LIMITATIONS: None. FINDINGS: VENTRICLES: Normal size and contour. CEREBRUM: No masses. No hemorrhage. No midline shift. No evidence for acute infarction. Normal gra y/white matter differentiation. No areas of low density in the white matter. CEREBELLUM: No masses. No hemorrhage. No alteration of density. No evidence for acute infarction. EXTRAAXIAL SPACES: No fluid collections. No masses. ORBITS AND GLOBE: No intra- or extraconal masses. Normal contour of globe without masses. CALVARIUM: No fracture. PARANASAL SINUSES: No fluid or mucosal thickening. SOFT TISSUES: No mass or hematoma. OTHER: No other significant finding. IMPRESSION: NORMAL BRAIN CT WITHOUT CONTRAST. EVIDENCE OF ACUTE STROKE: NO. COMMENT: Quality ID # [id number]: Final reports with documentation of one or more dose reduction techniques (e.g., Automated exposure control, adjustment of the mA and/or kV according to patient size, use of iterative reconstruction technique) TECHNICAL DOCUMENTATION: JOB ID: [id number] 2010 [employer]- All Rights Reserved Reading location - IP/workstation name: [email or web address]
--- NOTE | 2020-01-24 15:02 | RADIOLOGY REPORT (SQ) ---
EXAM DESCRIPTION: CT CERVICAL SPINE WITHOUT IMAGES COMPLETED DATE/TIME: 01/24/2020 2:39 pm REASON FOR STUDY: worst CRAWFORD, loss of feeling in forehead COMPARISON: None. TECHNIQUE: Axial images acquired through the cervical spine without intravenous contrast. Images re viewed with lung, soft tissue and bone windows. Reconstructed coronal and sagittal MPR images review ed. Images stored on PACS. All CT scanners at this facility use dose modulation, iterative reconstruction, and/or weight based d osing when appropriate to reduce radiation dose to as low as reasonably achievable (ALARA). [facility]: Dose Right [facility]: CareDose [facility]: Dose Right [facility]: Teradose 4D [facility]: [employer] RADIATION DOSE: CT Rad equipment meets quality standard of care and radiation dose reduction techniq ues were employed. CTDIvol: 14.4 mGy. DLP: 272 mGy-cm. mGy. LIMITATIONS: None. FINDINGS: ALIGNMENT: Anatomic. MINERALIZATION: Normal. VERTEBRAL BODIES: No fractures or dislocation. DISCS: No significant disc disease. FACETS, LATERAL MASSES, POSTERIOR ELEMENTS: No fractures. No dislocation. No acute findings. HARDWARE: None in the spine. VISUALIZED RIBS: No fractures. LUNG APICES AND SOFT TISSUES: No significant or acute findings. OTHER: No other significant finding. IMPRESSION: NO ACUTE OR SIGNIFICANT FINDINGS IN THE CERVICAL SPINE. TECHNICAL DOCUMENTATION: JOB ID: [id number] Quality ID # [id number]: Final reports with documentation of one or more dose reduction techniques (e.g., Au tomated exposure control, adjustment of the mA and/or kV according to patient size, use of iterative reconstruction technique) 2010 [employer]- All Rights Reserved Reading location - IP/workstation name: [email or web address]
--- NOTE | 2020-01-24 15:41 | ER Document Report ---
ED General - General Chief Complaint: Headache Stated Complaint: NECK PAIN Time Seen by Provider: 01/24/20 12:30 Primary Care Provider: ADARSH CUNNINGHAM PA-C [Primary Care Provider] - Follow up as needed TRAVEL OUTSIDE OF THE [place] IN LAST 30 DAYS: No - HPI Notes: Patient is a 49-year-old female presents emergency department for evaluation of a headache and neck pain. Her history is long, slightly convoluted. About 2 weeks ago she started having pain in her right shoulder. 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 She states that the pain progressed, it feels like there is something squeezing just inferior to her shoulder and her right upper extremity. She states the pain then went up into her neck. She describes a numbness and tingling in the back of her head. She states she feels a pressure on the posterior aspect of her head. She has a "numbness" that she feels through the middle of her head and points to her frontal region. She states she has had this headache and numbness in her head for about the last 6 days. She is spoken to her neurologist, who states that she wants an MRI as well as an EMG. The patient states her pain is currently a 2 out of 5. She states that it has waxed and waned. The morphine and pain medication that she takes at home has helped her pain somewhat. She denies any visual difficulties, no difficulty speaking or swallowing. She states that at one point her arm was difficult to move, but now she states her movement is back to baseline and all of her extremities. Despite her statements to the nurse practitioner in the front, she states that this is not the worst headache of her life. She states she is concerned because it would take several weeks for her to get an MRI of her neck, and she feels like the intermittent weakness that she is had in her right upper extremity is concerning. - Related Data Allergies/Adverse Reactions: banana Allergy (Verified 05/13/18 11:04) codeine Allergy (Verified 05/13/18 11:04) latex Allergy (Verified 05/13/18 11:04) bees Allergy (Uncoded 05/13/18 11:04) dairy Allergy (Uncoded 05/13/18 11:04) Home Medications: List reviewed with patient at bedside Past Medical History - General Information source: Patient - Social History Smoking Status: Current Every Day Smoker Family History: Reviewed & Not Pertinent, Arthritis, CAD, DM, Hyperlipidemia, Hypertension, Malignancy Pulmonary Medical History: Reports: Hx COPD Neurological Medical History: Reports: Hx Cerebrovascular Accident Renal/ Medical History: Denies: Hx Peritoneal Dialysis Musculoskeletal Medical History: Reports Hx Arthritis, Reports Hx Musculoskeletal Deformity, Reports Hx Musculoskeletal Trauma Psychiatric Medical History: Reports: Hx Anxiety Traumatic Medical History: Reports: Hx Fractures, Hx Spine Fracture Past Surgical History: Reports: Hx Cholecystectomy, Hx Gynecologic Surgery - tu bal ligation, Hx Orthopedic Surgery - spinal sx., Hx Tubal Ligation, Other - Removal of kidney stones, tubal ligation Review of Systems - Review of Systems Constitutional: No symptoms reported EENT: No symptoms reported Cardiovascular: No symptoms reported Respiratory: No symptoms reported Gastrointestinal: No symptoms reported Genitourinary: No symptoms reported Musculoskeletal: See HPI Skin: No symptoms reported Neurological/Psychological: See HPI Physical Exam - Vital signs Vitals: Temp Pulse Resp BP Pulse Ox 98.3 F 102 H 20 144/82 H 99 01/24/20 12:15 01/24/20 12:15 01/24/20 12:15 01/24/20 12:15 01/24/20 12:15 - Notes Notes: Vital signs reviewed, please refer to chart. Head is normocephalic, atraumatic. Pupils equal round, reactive to light. Neck is supple without meningismus. Negative Kernig's and Brudzinski signs. Heart is regular rate and rhythm. Lungs are clear to auscultation bilaterally. Abdomen is soft, nontender, normoactive bowel sounds throughout. Extremities without cyanosis, clubbing. Posterior calves are nontender. Peripheral pulses are equal. Skin is warm and dry. Patient is awake, alert, oriented x3. Cranial nerves II - XII are grossly intact without focal neurological deficits. Strength is plus 5 out of 5 bilateral lower extremities. Powder Hand strength is 5 out of 5 bilateral upper extremities, 4+ out of 5 strength in the right upper extremity otherwise, 5 out of 5 in the left upper extremity throughout. Sensation is intact. Reflexes diminished bilateral upper and lower extremities. Intact [id number], rapid alternating movements, [id number]. Course - Re-evaluation Re-evalutation: 01/24/20 15:40 Patient presents to the emergency department for evaluation. Initially upon seeing the provider in triage the patient described this is the worst headache of her life. She denies that to me. She has no nuchal rigidity. She has some right upper extremity weakness but this is not new, this is known to her neurologist, she has had significant cervical and lumbar issues in the past. She has no other neurological deficits. I do not have a suspicion of meningitis in this patient who has no sore throat, no rashes, no neck stiffness, no meningismus on exam. She states that she has a "deformity" where the "hole in my skull is too small." She is concerned that pressure is building up. Based on this information I will get an order an MRI of her head and neck. Her CT is unremarkable and her pain has been waxing and waning. She is sitting in the room comfortably, had completed a snack as well as a large [employer] coffee without any apparent difficulty. 01/24/20 17:58 Patient has been stable throughout the course of her stay. Her pain is currently a 1 out of 5 despite no intervention from us here. MRI shows some chronic changes. Explained her about the white matter changes on her MRI of her brain. I encouraged her to follow-up closely in regards to these issues with her neurologist, who would be most adept at interpreting all these changes and she voiced understanding. Otherwise she remains neurologically stable, has no other acute complaints, and is amenable to discharge. - Vital Signs Vital signs: Temp Pulse Resp BP Pulse Ox 98.3 F 102 H 20 144/82 H 99 01/24/20 12:15 01/24/20 12:15 01/24/20 12:15 01/24/20 12:15 01/24/20 12:15 - Laboratory Results Result Diagrams: 01/24/20 12:45 01/24/20 12:45 Laboratory Results Interpreted: 01/24/20 01/24/20 12:45 12:45 Hgb 15.6 H Calcium 10.4 H AST 177 H ALT 270 H Alkaline Phosphatase 164 H Critical Laboratory Results Reviewed: No Critical Results - Radiology Results Radiology Results Interpreted: 01/24/20 17:[address] 01/24/20 12:38 IMPRESSION: NO ACUTE OR SIGNIFICANT FINDINGS IN THE CERVICAL SPINE. Head CT 01/24/20 12:38 IMPRESSION: NORMAL BRAIN CT WITHOUT CONTRAST. EVIDENCE OF ACUTE STROKE: NO. Head MRI 01/24/20 15:11 IMPRESSION: 1. No acute intracranial abnormality on noncontrast MRI of the brain. 2. Few nonspecific foci of increased T2/FLAIR signal within the supratentorial white matter. Findings could reflect mild chronic small vessel ischemic changes. Other etiologies are also possible, including demyelinating disease, sequela of other prior infectious/inflammatory process, vasculitis/vasculopathy, or Lyme disease. 3. Partially empty sella is likely an incidental finding. EVIDENCE OF ACUTE STROKE: NO. Cervical Spine MRI 01/24/20 15:12 IMPRESSION: 1. Mild diffuse background spinal canal stenosis, probably congenital. No significant cord compression or disc herniation. 2. Some minimal degenerative changes as above. Critical Radiology Results Reviewed: No Critical Results Discharge - Discharge Clinical Impression: Headache Qualifiers: Headache type: unspecified Intractability: intractable Condition: Stable Disposition: HOME, SELF-CARE Instructions: Headache (OM) Additional Instructions: As discussed, there were not any acute findings on your MRI of your brain or your neck. Please call in the next several days to have medical records released and bring these to your neurologist. Continue your regular medications as prescribed. Return to the emergency department with worsening or new concerning symptoms of any sort. Referrals: ADARSH CUNNINGHAM PA-C [Primary Care Provider] - Follow up as needed
--- NOTE | 2020-01-24 17:05 | RADIOLOGY REPORT (SQ) ---
EXAM DESCRIPTION: MRI HEAD WITHOUT IMAGES COMPLETED DATE/TIME: 01/24/2020 1:47 pm REASON FOR STUDY: RUE weakness, possible foramen magnum deformity COMPARISON: CT head same date. TECHNIQUE: Multiplanar imaging includes non-contrasted T1, T2, FLAIR, and diffusion with ADC map seq uences. Images stored on PACS. LIMITATIONS: None. FINDINGS: ANATOMY: No anomalies. Normal vascular flow voids. Partially empty sella likely an incide ntal finding. CSF SPACES: Normal in size and contour. No hemorrhage. CEREBRUM: Sulci and gyri normal in size and contour. Few nonspecific foci of increased T2 FLAIR sign al within the supratentorial white matter, more pronounced in the posterior periventricular regions. Few subcortical foci also demonstrated. No evidence of hemorrhage, mass, or extraaxial fluid collec tion. POSTERIOR FOSSA: No signal alteration. No hemorrhage. No edema, masses or mass effect. Internal flash tory canals, cerebello-pontine angles, mastoids normal. DIFFUSION IMAGING: Negative for acute or sub-acute infarction. ORBITS: No masses. Globes normal. PARANASAL SINUSES: No fluid levels. Mucosa normal. OTHER: Cerebellar tonsils may be slightly low-lying, without significant herniation. IMPRESSION: 1. No acute intracranial abnormality on noncontrast MRI of the brain. 2. Few nonspecific foci of increased T2/FLAIR signal within the supratentorial white matter. Findin gs could reflect mild chronic small vessel ischemic changes. Other etiologies are also possible, inc luding demyelinating disease, sequela of other prior infectious/inflammatory process, vasculitis/vasc ulopathy, or Lyme disease. 3. Partially empty sella is likely an incidental finding. EVIDENCE OF ACUTE STROKE: NO. TECHNICAL DOCUMENTATION: JOB ID: [id number] [employer]- All Rights Reserved Reading location - IP/workstation name: [email or web address]
--- NOTE | 2020-01-24 17:29 | RADIOLOGY REPORT (SQ) ---
EXAM DESCRIPTION: MRI CERVICAL SPINE WITHOUT IMAGES COMPLETED DATE/TIME: 01/24/2020 1:47 pm REASON FOR STUDY: RUE weakness, increased head pressure COMPARISON: CT cervical spine same date. TECHNIQUE: Sagittal and Axial imaging includes T1, T2, STIR and gradient echo sequences. LIMITATIONS: None. FINDINGS: ALIGNMENT: Normal. VERTEBRAE: Intact. BONE MARROW: Normal. No marrow replacement or reactive changes. DISCS: There is some mild loss of intervertebral disc signal throughout the cervical spine. Interver tebral disc height is relatively well preserved. HARDWARE: None in the spine. CORD AND BASE OF BRAIN: Normal in size and signal intensity. SOFT TISSUES: No soft tissue masses. C1-C2: No significant spinal stenosis. C2-C3: Minimal background spinal canal stenosis. There is some mild facet arthropathy, more pronounc ed on the right. Neural foramina are not significantly narrowed. C3-C4: Mild background spinal canal stenosis. No significant disc herniation. Some minimal uncovert ebral joint spurring bilaterally. There may be some minimal left neural foraminal narrowing. C4-C5: Mild background spinal canal stenosis. No significant disc herniation. There is some mild fa cet arthropathy on the left. Some minimal uncovertebral joint spurring also demonstrated bilaterally with mild encroachment on the neural foramina. This may be slightly more pronounced on the right. C5-C6: Mild background spinal canal stenosis. No disc herniation. Neural foramina are not significa ntly narrowed. C6-C7: Minimal background spinal canal stenosis. No significant disc herniation. Neural foramina ar e not significantly narrowed. C7-T1: Patent. UPPER THORACIC: Incompletely imaged. No significant spinal stenosis or exit foraminal stenosis. OTHER: No other significant finding. IMPRESSION: 1. Mild diffuse background spinal canal stenosis, probably congenital. No significant cord compression or disc herniation. 2. Some minimal degenerative changes as above. TECHNICAL DOCUMENTATION: JOB ID: [id number] [employer]- All Rights Reserved Reading location - IP/workstation name: [email or web address]
[2020-01-24 18:29] VITALS: BP 136/67
== END 2020-01-24 18:30 | disposition home or self-care (01) ==
LOC: ER 12:08
DX: R51.9 Headache, unspecified (principal); M54.2 Cervicalgia; F17.200 Nicotine dependence, unspecified, uncomplicated; J44.9 Chronic obstructive pulmonary disease, unspecified; Z91.040 Latex allergy status; Z90.49 Acquired absence of other specified parts of digestive tract
CPT/HCPCS: 36415; 70450; 70551; 72125; 72141; 80053; 84702; 85025; 99285